=== PATIENT | male | born 1945 | race Caucasian/White ===

== ENCOUNTER 2021-02-01 21:41 | Inpatient (IN) | payer MEDICARE, SELFPAY ==
[2021-02-01 21:42] VITALS: BP 181/128; PULSE 76; RESP 18; TEMP 35.4; O2SAT 93; BMI 35.4
[2021-02-01 23:31] VITALS: BP 160/119; PULSE 104; RESP 20; O2SAT 92
--- NOTE | 2021-02-01 23:43 | EKG12_ITS ---
Test Reason : CONSTIPATION Blood Pressure : / mmHG Vent. Rate : 169 BPM Atrial Rate : 178 BPM P-R Int : 000 ms QRS Dur : 084 ms QT Int : 274 ms P-R-T Axes : 000 -05 103 degrees QTc Int : 459 ms Atrial fibrillation with rapid ventricular response Possible Anterior infarct , age undetermined Possible inferior infarct, age undetermined Abnormal ECG Confirmed by ANDRAE TAYLOR, CHERYL ([id number]), mapping editor GEORGINA MCINTOSH ([id number]) on 02/03/2021 11:24:46 AM Referred By: ALEXANDER Confirmed By:CHERYL ABEBE MD
--- NOTE | 2021-02-01 23:45 | ED.VIS.GEN ---
History of Present Illness Chief Complaint: Constipation Informant: Patient Onset: Weeks Context: Gradual Onset Narrative: Is a 75-year-old male presenting with constipation and increased swelling. Patient states he has had worsening constipation for the past 2 to 3 weeks. He states he has not had a good bowel movement since then. He notes he is passing some gas. He is not tried anything for his constipation at home. In addition, patient's been having a month or so of progressive worsening dyspnea on exertion, orthopnea and lower extremity edema. Patient states he gets intermittent palpitations especially when he exerts himself. Patient states has been having a hard time sleeping and having to lay on his right side. For now she has been sleeping in his truck reclined. Patient denies any nausea or vomiting. He does have history of inguinal hernia repair. He notes that he has not seen a doctor in 5 to 6 years. He denies any history of blood clots. He denies any associated chest pain. He has had swelling of his testicles as well. No other complaints at this time. Past Medical History - Allergies and Home Meds Allergies/Adverse Reactions: Allergies Sulfa (Sulfonamide Antibiotics) Allergy (Verified 02/01/21 21:44) PT UNSURE OF REACTION Primary Care Physician: NOT,DEFINED [NON-STAFF] - Past Medical History: None Surgical History: - - Inguinal hernia repair Smoking Status: Never smoker Review of Systems General: Denies: Chills, Fever, Sweats Eyes: Denies: Visual changes - bilaterally, Diplopia ENT: Denies: Rhinorrhea, Sore throat Cardiovascular: Reports: Palpitations, Heart racing. Denies: Chest pain Respiratory: Reports: Dyspnea, Dyspnea on exertion, Orthopnea. Denies: Cough Gastrointestinal: Reports: Constipation. Denies: Abdominal pain, Nausea, Vomiting, Diarrhea, Melena, Hematochezia Genitourinary: Reports: - - Testicular swelling. Denies: Dysuria, Hematuria, Frequency Musculoskeletal: Reports: Swelling. Denies: Back pain, Extremity Pain Skin: Denies: Rash, Wounds Neurological: Denies: Headache, Weakness, Numbness Physical Exam Vital Signs/Narrative: Vital Signs Temp Pulse Resp BP Pulse Ox 02/01/21 23:31 104 H 20 H 160/119 H 92 02/01/21 21:42 95.7 F L 76 18 181/128 H 93 Inital Vital Signs reviewed: Yes General: Well nourished, Well developed, No Acute Distress Head: Normocephalic, Atraumatic Eyes: Perrl, EOMI ENT: Moist mucous membranes, No rhinorrhea Neck: Supple, Nontender. Negative for: No JVD Cardiovascular: No murmurs, Irregular, Tachycardia Respiratory: No distress, Chest nontender, Diminished - Right base, - - No Crackles appreciated. Negative for: CTA bilaterally, Decreased Air Movement Abdomen: Soft, Nontender, Nondistended, Hyperactive bowel sounds, - - Pitting edema of the lower abdomen present. Negative for: Guarding, Rebound tenderness : - - Edema of the penis and testicles present Back: Nontender, Normal Inspection Extremities: No edema, Edema - Pain edema of bilateral lower extremities. Chronic venous stasis changes of the shins bilaterally Skin: Normal color, No rash Neurological: Alert, Oriented x3, Cranial nerves II-XII grossly intact, Normal Strength, Normal Sensation Psychological: Normal affect, Normal Mood Diagnostic/Tx/Re-eval Chest X-Ray - ED: 1 View, Read by ED Physician, Read by Radiologist, Right Effusion Clinical Impression(s) from Imaging Studies Chest X-Ray 02/02/21 00:00 IMPRESSION: Right midlung subsegmental atelectasis versus pneumonia. Small right pleural effusion. If there is high clinical suspicion of a right-sided pneumonia correlate with CT chest. Electronically Signed: Cecil Macias MD at 1:11 EDT , Service support , Abdomen/Pelvis CT 02/02/21 23:43 IMPRESSION: Bilateral pleural effusions right greater than left. Bilateral lower lobe and right upper lobe subsegmental atelectasis versus pneumonia. Mild right renal atrophy. Left renal parapelvic cysts which would find no further evaluation. Anasarca. Electronically Signed: Cecil Macias MD at 3:23 EDT , Service support , Laboratory Data 02/01/21 02/01/21 02/01/21 23:50 23:50 23:50 WBC 9.8 RBC 4.97 Hgb 15.1 Hct 47.0 MCV 94.6 H MCH 30.4 MCHC 32.1 RDW Std Deviation 47.6 H RDW Coeff of Patsy 13.8 Plt Count 146 L MPV 10.9 Immature Gran % (Auto) 0.300 Neut % (Auto) 80.4 H Lymph % (Auto) 6.6 L [place] % (Auto) 12.3 H Eos % (Auto) 0.2 Baso % (Auto) 0.2 Absolute Neuts (auto) 7.9 H Absolute Lymphs (auto) 0.65 L Nucleated RBC % 0 Sodium 138 Potassium 3.7 Chloride 103 Carbon Dioxide 28.0 Anion Gap 7 BUN 26 H Creatinine 1.70 H Estim Creat Clear Calc 36.97 Est GFR (MDRD) Af Amer 51 L Est GFR (MDRD) Non-Af 42 L BUN/Creatinine Ratio 15.3 Glucose 105 Calcium 9.5 Total Bilirubin 1.30 H AST 20 ALT 34 Alkaline Phosphatase 83 Troponin I 0.035 B-Natriuretic Peptide 285.1 H Total Protein 7.2 Albumin 3.3 Globulin 3.9 Albumin/Globulin Ratio 0.8 L Lipase 232 Urine Color Urine Clarity Urine pH Ur Specific [place] Urine Protein Urine Glucose (UA) Urine Ketones Urine Occult Blood Urine Nitrite Urine Bilirubin Urine Urobilinogen Ur Leukocyte Esterase Urine RBC Urine WBC Ur Squamous Epith Cells Urine Bacteria Urine Mucus 02/02/21 02:10 WBC RBC Hgb Hct MCV MCH MCHC RDW Std Deviation RDW Coeff of Patsy Plt Count MPV Immature Gran % (Auto) Neut % (Auto) Lymph % (Auto) [place] % (Auto) Eos % (Auto) Baso % (Auto) Absolute Neuts (auto) Absolute Lymphs (auto) Nucleated RBC % Sodium Potassium Chloride Carbon Dioxide Anion Gap BUN Creatinine Estim Creat Clear Calc Est GFR (MDRD) Af Amer Est GFR (MDRD) Non-Af BUN/Creatinine Ratio Glucose Calcium Total Bilirubin AST ALT Alkaline Phosphatase Troponin I B-Natriuretic Peptide Total Protein Albumin Globulin Albumin/Globulin Ratio Lipase Urine Color Yellow Urine Clarity Clear Urine pH 5.0 Ur Specific [place] 1.015 Urine Protein 30 H Urine Glucose (UA) Normal Urine Ketones 50 H Urine Occult Blood 10 H Urine Nitrite Negative Urine Bilirubin Negative Urine Urobilinogen 1 H Ur Leukocyte Esterase Negative Urine RBC 0-5 SEEN Urine WBC 0 SEEN Ur Squamous Epith Cells 0 SEEN Urine Bacteria 0 SEEN Urine Mucus 0 SEEN - Rhythm Strip Rhythm Strip: A-fib Rate: 146 Ectopy: None - EKG Initial EKG Interpretation: Atrial Fibrillation, - - Atrial fibrillation with RVR at a rate of 169 Left axis deviation Normal QRS and QTc Normal ST segments - Medical Decision Making Patient presents to the ED for complaint of constipation. He also notes has had increased edema over the past few weeks. Patient is not seen a doctor in at least 5 years. He denies any known medical history. While patient is in the ER he he goes into A. fib with RVR. Patient does not have any known history of atrial fibrillation or any type of cardiac arrhythmia. He states he has been getting this sensation on not for the past month. His physical exam is consistent with fluid overload and anasarca. Patient is complain of constipation and had distended abdomen. Therefore CT of abdomen pelvis is also obtained.He has been doing well CBC is largely unremarkable. BMP is remarkable for creatinine 1.7. We do not have a baseline to compare to. His BNP is elevated to 85. Urinalysis shows some ketones but no signs of infection. Chest x-ray atelectasis versus pneumonia and a right pleural effusion. CT of the abdomen pelvis shows anasarca as well as moderate right and small left pleural effusion. Questionable pneumonia versus infiltrate. No signs of constipation. Clinically I suspect patient is fluid overloaded and does not have pneumonia. Patient is started on Cardizem drip for atrial fibrillation. He does have improvement of rate but continues to have RVR. Patient is also given a 40 mg of IV Lasix as well as 5 mg of IV metoprolol. He will be admitted for further treatment and evaluation. Patient agreeable with this plan of care. ED Disposition - Plan for ED Patient: Disposition: [facility] Diagnosis: Afib, Heart failure, Anasarca, PATRICIA (acute kidney injury) Referrals: NOT,DEFINED [NON-STAFF] -
--- NOTE | 2021-02-01 23:48 | ED.RN ---
NO OLD EKGS ON FILE
[2021-02-01 23:49] VITALS: PULSE 160; RESP 22; O2SAT 97
[2021-02-01] MEDS: dilTIAZem 25 MG/5 ML Vial 15 MG IV BOLUS (23:49)
[2021-02-01 23:50] VITALS: PULSE 106
[2021-02-01 23:51] VITALS: BP 143/90; PULSE 106; RESP 22; TEMP 37.1; O2SAT 97
[2021-02-02] VITALS (34 sets, daily range): BP systolic 112–175; BP diastolic 87–159; PULSE 79–152; RESP 13–26; TEMP 36.3–36.8; O2SAT 93–99; BMI 33.1; BMI 33.2
--- NOTE | 2021-02-02 | RAD_ITS ---
STUDY: X-RAY CHEST REASON FOR EXAM: Male, 75 years old. Shortness of breath. TECHNIQUE: AP portable chest. COMPARISON: None. FINDINGS: Linear density right midlung. There may be a small right pleural effusion. Right lower lobe airspace opacity cannot be excluded. No pneumothorax. Normal size heart. Normal mediastinum and milagro. Normal visualized pulmonary arteries. Normal visualized aortic arch and descending thoracic aorta. Normal visualized thoracic spine. Normal visualized ribs, clavicles, and shoulders. There is no demonstrated abnormality of the visualized soft tissue structures of the upper abdomen. RAD/Chest 1 View (Portable) IMPRESSION: Right midlung subsegmental atelectasis versus pneumonia. Small right pleural effusion. If there is high clinical suspicion of a right-sided pneumonia correlate with CT chest. Electronically Signed: Cecil Macias MD at 1:11 EDT , Service support ,
[2021-02-02 00:02] LABS: Absolute Lymphocyte Count 0.65 X10^3/uL (0.83-4.51); Absolute Neutrophil Count 7.9 X10^3/uL (2.0-7.7); Basophil# 0.02 X10^3/uL; Basophil% 0.2 % (0-1); Eosinophil# 0.02 X10^3/uL; Eosinophils% 0.2 % (0-5); Hemoglobin 15.1 g/dL (13.0-16.5); Lymphocyte # 0.65 X10^3/ul (4.0); Lymphocyte % 6.6 % (19-41); Mean Corp Hgb Conc 32.1 g/dL (32-36); Mean Corpuscular Hgb 30.4 pg (27.0-32.0); Mean Corpuscular Volume 94.6 fL (80-94); Mean Platelet Vol. 10.9 fl (6.2-12.0); Monocyte% 12.3 % (0-10); NRBC Flagged by Analyzer 0 % (0-5); Neutrophil # 7.86 X10^3/uL (2.7-7.7); Neutrophil % 80.4 % (47-70); Platelet Count 146 K/mm3 (150-450); RBC Distribution Width CV 13.8 % (11.6-14.6); RBC Distribution Width SD 47.6 fl (35.1-43.9); Red Blood Count 4.97 M/mm3 (4.6-6.2); White Blood Count 9.8 K/mm3 (4.4-11.0)
[2021-02-02 00:22] LABS: ALB/GLOB Ratio 0.8 RATIO (0.9-2.4); AST(SGOT) 20 U/L (15-37); Alanine Aminotransfer ALT/SGPT 34 U/L (16-61); Albumin, Serum 3.3 g/dL (3.2-5.0); Alkaline Phosphatase 83 U/L (45-117); Anion Gap 7 (5-15); BNP,B-Type NATRIURETIC PEPTIDE 285.1 pg/mL (0-100); BUN 26 mg/dL (7-18); BUN/Creat Ratio 15.3 RATIO (10-20); Calcium,Total 9.5 mg/dL (8.5-10.1); Chloride 103 mmol/L (98-107); EST Glomerular Filtration Rate 42 mL/min (>60); Est Glom Filt Rate - Afr Amer 51 mL/min (>60); Estimated Creatinine Clearance 36.97 ml/min; Globulin 3.9 g/dL (2.2-4.2); Glucose 105 mg/dL (74-106); Lipase 232 U/L (73-393); Potassium 3.7 mmol/L (3.5-5.1); Protein, Total 7.2 g/dL (6.4-8.2); Sodium Level 138 mmol/L (136-145)
[2021-02-02 02:15] LABS: Bacteria 0 SEEN /hpf (None Seen); Mucous, Urine 0 SEEN /hpf (<or=2+); Squamous Epithelial Cells - UA 0 SEEN /hpf (0-5); White Blood Cells 0 SEEN /hpf (0-5)
[2021-02-02 02:16] LABS: Color, Urine Yellow (Yellow); Glucose, Dipstick Normal (Normal); Ketone-Dipstick 50 mg/dl (Negative); Leukocyte Esterase-Dipstick Negative /ul (Negative); Nitrite-Dipstick Negative (Negative); Occult Blood-Urine 10 /ul (Negative); Protein-Dipstick 30 mg/dl (Negative); Specific Gravity, Urine 1.015 (1.002-1.030); Urine Bilirubin Dipstick Negative (Negative); Urine Clarity Clear (Clear); Urine Urobilinogen 1 mg/dl (Normal)
[2021-02-02 02:23] LABS: Red Blood Cells-Urine 0-5 SEEN /hpf (0-5)
[2021-02-02] MEDS: Furosemide 40 MG/4 ML Vial IV ×3 (03:09→17:49)
--- NOTE | 2021-02-02 03:43 | PCM.HP.STD ---
Problem List (1) Afib Status: Acute (2) Heart failure Status: Acute (3) HTN (hypertension) Status: Chronic History of Present Illness Date of Admission: 02/02/21 Chief Complaint: abdominal heaviness The patient is a 75 year old M with a significant history of hypertension who presents emergency department with abdominal heaviness. Associated with his symptoms is palpitations; orthopnea; paroxysmal nocturnal dyspnea; shortness of breath; and fatigue. His symptoms started about mid November 2020 and it has progressively been worsening. Past Medical History Past Medical History (Chronic Problems): Chronic Problems (Last Updated 02/02/21 @ 04:[address] Jeovany Drew MD) HTN (hypertension) (Chronic) Medical History: Medical History (Last Reviewed 02/02/21 @ 04:[address] Jeovany Drew MD) HTN (hypertension) I10 Allergies Sulfa (Sulfonamide Antibiotics) Allergy (Verified 02/01/21 21:44) PT UNSURE OF REACTION Home Medications: Ambulatory Orders Medication Instructions Recorded NK 02/01/21 Surgical History: - - Inguinal hernia repair Smoking Status: Former smoker - *Family History Maternal History Items: Cancer Paternal History Items: Heart Disease, - - Leukemia Review of Systems Constitutional: Denies: Chills, Fever, Weight Change HEENT: Denies: Head Aches, Sinus Congestion, Sinus Drainage Cardiovascular: Reports: Edema, Orthopnea, Palpitations, Paroxysmal Noc. Dyspnea. Denies: Chest Pain Respiratory: Reports: Shortness of Breath. Denies: Cough, Shortness of breath at rest, Sputum production Gastrointestinal: Denies: Abdominal Pain, Nausea, Vomiting Genitourinary: Denies: Dysuria Musculoskeletal: Denies: Joint Pain, Joint Tenderness Skin: Denies: Rash, Wounds Neurological: Denies: Numbness, Tingling, Focal weakness Psychiatric: Denies: Anxiety, Depression, Homicidal Ideations, Suicidal Ideations Hematologic/ Lymphatic: Denies: Easy Bruising, Easy Bleeding VTE Information - Inpt Only VTE Present on Admission: No VTE Mechan Device Prophylaxis: None VTE Pharm Prophylaxis ordered?: No Reason prophylaxis not ordered:: Treatment Not Indicated - Therapeutic dose of Lovenox ordered for A. fib. Patient Problems: Active and Suspected Problems (Last Updated 02/02/21 @ 04:[address] Jeovany Drew MD) Afib (Acute) Heart failure (Acute) - Physical Exam Vitals/I&O's: Vital Signs Temp Pulse Resp BP Pulse Ox 97.7 F L 121 H 26 H 158/110 H 98 02/02/21 03:42 02/02/21 03:42 02/02/21 03:42 02/02/21 03:42 02/02/21 03:42 Oxygen Flow Rate (L/min) 2 Oxygen Delivery Method Nasal Cannula Weight: 109 kg Body Mass Index (BMI) 35.4 Intake and Output for Last 24 Hours 01/31/21 02/01/21 02/02/21 23:59 23:59 23:59 Intake Total 10.83 / Balance .83 / General: Alert, Oriented x3, Cooperative HEENT: Atraumatic, PERRLA, EOMI, Normocephalic Neck: Supple, No JVD, Negative Carotid Bruits Lungs: Clear to auscultation, Normal air movement, Diminished - R base Cardiovascular: Normal S1, Normal S2, No murmurs, Irregular Rate, Tachycardic Abdomen: Bowel Sounds Present, Soft, Non Tender, - - Scrotal and penile edema Extremities: Capillary Refill Less than 3 Seconds, Edema - 3+ Skin: No rashes, No breakdown Musculoskeletal: No Tenderness to Palpation of Joints or Extremities Neurological: Cranial nerves II-XII grossly intact Psych/Mental Status: Normal Affect, Appropriate Laboratory Results 02/01/21 23:50: WBC 9.8, RBC 4.97, Hgb 15.1, Hct 47.0, MCV 94.6 H, MCH 30.4, MCHC 32.1, RDW Std Deviation 47.6 H, RDW Coeff of Patsy 13.8, Plt Count 146 L, MPV 10.9, Immature Gran % (Auto) 0.300, Neut % (Auto) 80.4 H, Lymph % (Auto) 6.6 L, [place] % (Auto) 12.3 H, Eos % (Auto) 0.2, Baso % (Auto) 0.2, Absolute Neuts (auto) 7.9 H, Absolute Lymphs (auto) 0.65 L, Nucleated RBC % 0 02/01/21 23:50: Sodium 138, Potassium 3.7, Chloride 103, Carbon Dioxide 28.0, Anion Gap 7, BUN 26 H, Creatinine 1.70 H, Estim Creat Clear Calc 36.97, Est GFR (MDRD) Af Amer 51 L, Est GFR (MDRD) Non-Af 42 L, BUN/Creatinine Ratio 15.3, Glucose 105, Calcium 9.5, Total Bilirubin 1.30 H, AST 20, ALT 34, Alkaline Phosphatase 83, Troponin I 0.035, Total Protein 7.2, Albumin 3.3, Globulin 3.9, Albumin/Globulin Ratio 0.8 L, Lipase 232 02/01/21 23:50: B-Natriuretic Peptide 285.1 H 02/02/21 02:10: Urine Color Yellow, Urine Clarity Clear, Urine pH 5.0, Ur Specific [place] 1.015, Urine Protein 30 H, Urine Glucose (UA) Normal, Urine Ketones 50 H, Urine Occult Blood 10 H, Urine Nitrite Negative, Urine Bilirubin Negative, Urine Urobilinogen 1 H, Ur Leukocyte Esterase Negative, Urine RBC 0-5 SEEN, Urine WBC 0 SEEN, Ur Squamous Epith Cells 0 SEEN, Urine Bacteria 0 SEEN, Urine Mucus 0 SEEN Current Medications Diltiazem HCl 125 mg/ Dextrose 125 mls @ 5 mls/hr IV .Q25H ROBINSON; Protocol Last Titration: 02/02/21 01:42 Dose: 15 mg/hr, 15 mls/hr Documented by: Assessment/Plan All Active Problems (Last Updated 02/02/21 @ 04:[address] Jeovany Drew MD) Afib (Acute) Heart failure (Acute) The patient is a 75 year old M with a significant history of hypertension who presents emergency department with abdominal heaviness. Stated for symptoms is palpitations; orthopnea; paroxysmal nocturnal dyspnea; shortness of breath; and fatigue; found to have A. fib in RVR and also with chest x-ray and CT abdomen and pelvis findings of bilateral pleural effusion. Atrial fibrillation EKG tracing independently reviewed showed atrial fibrillation with a ventricular rate of 169 Place on PCU on telemetry Obtain echo [id number] 2 score 3 points if CHF history is not included. Lovenox 1 mg per kilogram subcutaneous every 12 hours Potassium level on presentation was 3.7. Given 40 mEq of potassium. Placed on potassium chloride 40 mEq daily. Will check magnesium. Will check TSH. Recheck the labs in the a.m. including a lipid panel. New onset heart failure Review of ED labs showed mildly elevated BNP at 285.1 Weight on admission to the floor; and then daily Strict I&O's Chest x-ray impression by radiology: Right midlung subsegmental atelectasis versus pneumonia. Small right pleural effusion. Actual chest x-ray image was independently interpreted. I agree with radiologist interpretation. Because of abdominal heaviness, abdomen and pelvis CT was obtained and emergency department. Radiologist impression: Bilateral pleural effusion right greater than left. Bilateral lower lobe and right upper lobe subsegmental atelectasis versus pneumonia. Clinically no sign of pneumonia at this time. No fever and white count is not elevated. Bands are not elevated. Also abdomen and pelvis CT showed anasarca. BNP 285.1 Received Lasix 40 g IV at emergency department. Lasix 40 mg IV twice daily ordered. Echo ordered to evaluate LVEF and wall motion. No previous echocardiogram on file. Actually no previous records on follow-up. Check of community records did not produce any results. Monitor electrolytes and renal function. Jonel wrap to bilateral lower extremities Fluid restriction of 1250 mls daily Cardiac diet PATRICIA Creatinine on presentation was 1.70. No previous records on file. No previous records in [facility]. Differential diagnosis include CKD. Possible cardiorenal syndrome. Lasix as above. Hypertension Started on Cardizem drip; continued. Trend blood pressures. Hyperbilirubinemia Bilirubin on presentation was 1.30. No clear etiology at this time. Trend CMP. DVT prophylaxis Subcutaneous Lovenox ordered. Inpatient E&M: 27932 Init Hosp L3
[2021-02-02] MEDS: Metoprolol Tartrate 5 MG/5 ML Vial IV (03:48)
--- NOTE | 2021-02-02 04:17 | ECHOCS_ITS ---
Reason For Study: A. fib/flutter Procedure This was a 2D Doppler, Color Flow transthoracic echocardiogram. The study was technically difficult. Patient scanned sitting up due to SOB. Contrast injection was performed. Exam performed portable in patient room. Left Ventricle Normal LV size. Mild concentric left ventricular hypertrophy. Mild global left ventricular systolic dysfunction. The estimated ejection fraction is 40 %. Unable to assess diastolic dysfunction. Right Ventricle Normal RV size. Normal systolic function. Atria The left atrium is moderately enlarged. The right atrium is mildly enlarged. No doppler evidence for ASD. Mitral Valve There is no mitral annular calcification. Normal mitral valve. Trivial mitral valve insufficiency. Tricuspid Valve Normal tricuspid valve. Mild tricuspid valve insufficiency. Right ventricular systolic pressure estimated to be 22 mmHg. Aortic Valve Trisinus/trileaflet aortic valve. Mild diffuse aortic valve thickening. Pulmonic Valve The pulmonic valve is not well visualized. Trivial pulmonic valve insufficiency. Great Vessels Normal sized aortic root. Pericardium/Pleural No pericardial effusion. Medication Diluted definity 4ml given slow IV push to enhance endocardial definition. MMode/2D Measurements & Calculations LVIDd: 3.9 cm IVSd: 1.4 cm Ao root diam: 3.8 cm LVIDs: 3.0 cm LVPWd: 1.3 cm RVDd: 3.6 cm FS: 22.6 % LAV(MOD-bp): 87.1 ml LVAd ap4: 29.2 cm2 SV(MOD-sp4): 23.6 ml LAV(MOD-bp) Indexed: 39.7 ml/m2 EDV(MOD-sp4): 78.4 ml LAV(MOD-sp2): 83.4 ml EDV(sp4-el): 81.9 ml LAV(MOD-sp4): 86.5 ml LVAs ap4: 21.7 cm2 ESV(MOD-sp4): 54.8 ml ESV(sp4-el): 54.2 ml EF(MOD-sp4): 30.1 % EF(sp4-el): 33.9 % SV(sp4-el): 27.7 ml LA A4 area: 26.9 cm2 LA dimension(2D): 4.6 cm RA A4 area: 23.5 cm2 Doppler Measurements & Calculations MV E max shikha: 81.8 cm/sec Ao V2 max: 101.9 cm/sec LV V1 max: 83.2 cm/sec Ao max P.2 mmHg LV V1 max P.8 mmHg PA V2 max: 73.6 cm/sec TR max shikha: 215.9 cm/sec TR max P.7 mmHg ECHO/Echo Complete W/ Contrast Interpretation Summary The study was technically difficult. Contrast injection was performed. Mild global left ventricular systolic dysfunction. The estimated ejection fraction is 40 %. Mild concentric left ventricular hypertrophy. The left atrium is moderately enlarged. The right atrium is mildly enlarged. Trivial mitral valve insufficiency. Mild tricuspid valve insufficiency. Mild diffuse aortic valve thickening. Trivial pulmonic valve insufficiency. Right ventricular systolic pressure estimated to be 22 mmHg. Unable to assess diastolic dysfunction. Comment: 2D echocardiographic images demonstrate a vague echodensity on the lef t atrial side of the interatrial septum of uncertain etiology with a differential diagnosis includin g echocardiographic reverberation/artifact, however, other etiologies such as mass lesion cannot be excluded. Consider further evaluation with additional cardiovascular studies such as HILARY or radiol ogic studies such as cardiac MRI as clinically indicated.= Ordering Physician: Jeovany Drew Performed By: Cleo Root RDCS
[2021-02-02] MEDS: Potassium Chloride Oral Tablet 20 MEQ 40 MEQ PO ×2 (04:36→09:36)
[2021-02-02] MEDS: Enoxaparin 120 MG/0.8 ML Syringe 110 MG SC ×2 (04:36→21:14)
[2021-02-02 05:01] LABS: Absolute Lymphocyte Count 0.74 X10^3/uL (0.83-4.51); Absolute Neutrophil Count 8.2 X10^3/uL (2.0-7.7); Basophil# 0.03 X10^3/uL; Basophil% 0.3 % (0-1); Eosinophil# 0.06 X10^3/uL; Eosinophils% 0.6 % (0-5); Hematocrit 46.4 % (40-54); Hemoglobin 14.6 g/dL (13.0-16.5); Lymphocyte # 0.74 X10^3/ul (4.0); Lymphocyte % 7.1 % (19-41); Mean Corp Hgb Conc 31.5 g/dL (32-36); Mean Corpuscular Hgb 29.6 pg (27.0-32.0); Mean Corpuscular Volume 93.9 fL (80-94); Monocyte# 1.28 X10^3/uL; Monocyte% 12.4 % (0-10); NRBC Flagged by Analyzer 0 % (0-5); Neutrophil # 8.19 X10^3/uL (2.7-7.7); Neutrophil % 79.1 % (47-70); Platelet Count 155 K/mm3 (150-450); RBC Distribution Width CV 13.8 % (11.6-14.6); RBC Distribution Width SD 47.6 fl (35.1-43.9); Red Blood Count 4.94 M/mm3 (4.6-6.2); White Blood Count 10.4 K/mm3 (4.4-11.0)
[2021-02-02 05:31] LABS: ALB/GLOB Ratio 0.8 RATIO (0.9-2.4); AST(SGOT) 21 U/L (15-37); Alanine Aminotransfer ALT/SGPT 35 U/L (16-61); Albumin, Serum 3.3 g/dL (3.2-5.0); Alkaline Phosphatase 87 U/L (45-117); Anion Gap 8 (5-15); BUN 25 mg/dL (7-18); BUN/Creat Ratio 16.2 RATIO (10-20); Calcium,Total 9.6 mg/dL (8.5-10.1); Chloride 102 mmol/L (98-107); Creatinine, Serum 1.54 mg/dL (0.70-1.30); EST Glomerular Filtration Rate 47 mL/min (>60); Est Glom Filt Rate - Afr Amer 57 mL/min (>60); Estimated Creatinine Clearance 42.14 ml/min; Globulin 3.9 g/dL (2.2-4.2); Glucose 113 mg/dL (74-106); Magnesium 1.9 mg/dL (1.6-2.6); Potassium 3.7 mmol/L (3.5-5.1); Protein, Total 7.2 g/dL (6.4-8.2); Sodium Level 138 mmol/L (136-145); Thyroid Stim Hormone (TSH) 2.47 uIU/mL (0.358-3.74)
[2021-02-02] MEDS: 0.9% Saline Lock 10 ML Syringe IV (09:38)
--- NOTE | 2021-02-02 11:10 | CASEMGMT ---
[facility] BILL Face to Face with patient for initial transition planning/care coordination assessment. RN FLY introduced self and role at [facility]. Patient lying in bed, alert and oriented. Patient willing to participate in assessment and is able to answer all questions appropriately. Care providers, pharmacy, and demographics verified. Patient wishes to discharge home, denies need for home health at this time. Patient states he has no further needs or concerns at this time. CM to follow for discharge planning needs that may arise. PCP: No PCP, FLY to provide patient with PCP list Specialists: none Preferred Pharmacy: [facility] Insurance: [facility] Prescription Benefit: none Living Will/HPOA: none LNOK: brother Living Arrangements: Patient lives alone in a 1 story home. Patient states he is independent and able to ambulate stairs. Transportation: self/friend DME/HHC: Patient denies DME or previous HHC. Disposition Plan: Patient to discharge home with follow-up plans in place. Casandra HERNANDEZ, RN, CM
[2021-02-02] MEDS: Metoprolol Tartrate 25 MG Tablet PO ×2 (16:15→21:14)
--- NOTE | 2021-02-02 21:50 | PCM.CONS.C ---
Problem List (1) Afib Status: Acute (2) CHF (congestive heart failure) Status: Acute Qualifiers: Heart failure type: systolic Heart failure chronicity: acute Qualified Code(s): I50.21 - Acute systolic (congestive) heart failure (3) Cardiomyopathy Status: Acute (4) Left atrial mass Status: Acute (5) HTN (hypertension) Status: Chronic (6) Renal insufficiency Status: Acute Reason for Consult Date of Consultation: 02/02/21 History of Present Illness: The patient is a 75 year [id number] white male with a past medical history of hypertension who is referred for evaluation of atrial fibrillation with rapid ventricular response, congestive heart failure, echocardiographic findings compatible with an underlying cardiomyopathy, echocardiographic findings compatible with a possible left atrial mass, superimposed upon hypertension, and renal insufficiency. The patient states that he had been in his usual state of health in the fall 2019 not noticing any significant issues or concerns. However since the beginning of 2020, and especially over the last approximately 1 month, he states that he has progressively gone downhill . He has noted episodes of palpitations and has noted progressive shortness of breath/dyspnea, the development of symptoms compatible with orthopnea, and progressive lower extremity peripheral pitting edema which has progressed up to his thighs. He states that his breathing has gotten worse where he cannot lie down comfortably. He has not necessarily complained of any near-syncope or syncope. Based upon his ongoing symptoms he presented to the emergency department for further evaluation and care. He was subsequently noted to have findings concerning for atrial fibrillation with rapid ventricular response. He was brought into the hospital for additional evaluation and care. Since being in the PCU he has undergone laboratory studies. He is noted to have elevation of his creatinine level. His cardiac rhythm has remained atrial fibrillation. He did undergo evaluation with a transthoracic echocardiogram. The results are as noted below. He also had a chest x-ray performed with the impression as noted below. He has been placed on medical therapy. This has included IV diltiazem for assistance with his ventricular rate control. He was also placed on IV diuretic therapy. He has had increased urinary output. [] Past Medical History Allergies/Adverse Reactions: Allergies Sulfa (Sulfonamide Antibiotics) Allergy (Verified 02/01/21 21:44) PT UNSURE OF REACTION Home Medications: Ambulatory Orders Medication Instructions Recorded NK 02/01/21 Past Medical History (Chronic Problems): Chronic Problems (Last Reviewed 02/02/21 @ 04:[address] Jeovany Drew MD) HTN (hypertension) (Chronic) Surgical History: - - Inguinal hernia repair - *Family History Maternal History Items: Cancer Paternal History Items: Heart Disease, - - Leukemia Lives: Alone Smoking Status: Former smoker Alcohol: None Drugs: None Review of Systems - Review of Systems General: Reports: Decreased Appetite. Denies: Fever, Fatigue, Night Sweats Cardiovascular: Reports: Shortness of Breath, Shortness of Breath at Rest, Shortness of Breath with Exertion, Orthopnea, Peripheral Edema, Palpitations. Denies: Chest Discomfort, PND, Lightheadedness, Dizziness, Near Syncope, Syncope Respiratory: Reports: Shortness of Breath. Denies: Cough, Sputum Production, Hemoptysis Genitourinary: Denies: Dysuria, Hematuria Skin: Denies: Rash Subjectve: This is a 75-year-old white male who appears to be resting reasonably comfortably in a semirecumbent position. Objective: Vital Signs Temp Pulse Resp BP Pulse Ox 98.1 F 84 22 H 127/109 H 94 02/02/21 20:00 02/02/21 21:14 02/02/21 21:00 02/02/21 21:00 02/02/21 21:00 Oxygen Flow Rate (L/min) 3 Oxygen Delivery Method Nasal Cannula Weight: 232 lb 5.875 oz Body Mass Index (BMI) 33.1 Intake and Output for Last 24 Hours 01/31/21 02/01/21 02/02/21 23:59 23:59 23:59 Intake Total 775.50 / 775.50 Output Total 2049 Balance -1274.50 / -1274.50 General: Awake, Alert, Oriented x 3, Cooperative, No Acute Distress, Obese HEENT: Atraumatic, Normocephalic, PERRL, EOMI, Sclera Non Icteric Neck: Supple, Good ROM Lungs: Diminished Que Bases Cardiovascular: Irregular Rhythm, Normal S1, Normal S2 Vascular: Decreased R Dorsalis Pedal Pulse, Decreased L Dorsalis Pedal Pulse, Decreased R Posterior Tibial Pulse, Decreased L Posterior Tibial Pulse Abdomen: Bowel Sounds Present, Soft, Obese Extremities: Severe RLE Edema, Severe LLE Edema Neurological: No Focal Motor or Sensory Deficit Psych/Mental Status: Depressed 02/01/21 23:50: WBC 9.8, RBC 4.97, Hgb 15.1, Hct 47.0, MCV 94.6 H, MCH 30.4, MCHC 32.1, Plt Count 146 L, MPV 10.9, Immature Gran % (Auto) 0.300, Neut % (Auto) 80.4 H, Lymph % (Auto) 6.6 L, Christian % (Auto) 12.3 H, Eos % (Auto) 0.2, Baso % (Auto) 0.2, Absolute Neuts (auto) 7.9 H, Nucleated RBC % 0 02/01/21 23:50: Sodium 138, Potassium 3.7, Chloride 103, Carbon Dioxide 28.0, Anion Gap 7, BUN 26 H, Creatinine 1.70 H, Est GFR (MDRD) Af Amer 51 L, Est GFR (MDRD) Non-Af 42 L, BUN/Creatinine Ratio 15.3, Glucose 105, Calcium 9.5, Total Bilirubin 1.30 H, Troponin I 0.035 02/01/21 23:50: B-Natriuretic Peptide 285.1 H 02/02/21 02:10: Urine Color Yellow, Urine Clarity Clear, Urine pH 5.0, Ur Specific [place] 1.015, Urine Protein 30 H, Urine Glucose (UA) Normal, Urine Ketones 50 H, Urine Occult Blood 10 H, Urine Nitrite Negative, Urine Bilirubin Negative, Urine Urobilinogen 1 H, Ur Leukocyte Esterase Negative, Urine RBC 0-5 SEEN, Urine WBC 0 SEEN 02/02/21 04:34: Sodium 138, Potassium 3.7, Chloride 102, Carbon Dioxide 28.0, Anion Gap 8, BUN 25 H, Creatinine 1.54 H, Est GFR (MDRD) Af Amer 57 L, Est GFR (MDRD) Non-Af 47 L, BUN/Creatinine Ratio 16.2, Glucose 113 H, Calcium 9.6, Magnesium 1.9, Total Bilirubin 1.40 H 02/02/21 04:34: WBC 10.4, RBC 4.94, Hgb 14.6, Hct 46.4, MCV 93.9, MCH 29.6, MCHC 31.5 L, Plt Count 155, MPV 11.0, Immature Gran % (Auto) 0.500, Neut % (Auto) 79.1 H, Lymph % (Auto) 7.1 L, Christian % (Auto) 12.4 H, Eos % (Auto) 0.6, Baso % (Auto) 0.3, Absolute Neuts (auto) 8.2 H, Nucleated RBC % 0 Rhythm: atrial fibrillation EKG: atrial fibrillation with RVR ECHO: Interpretation Summary The study was technically difficult. Contrast injection was performed. Mild global left ventricular systolic dysfunction. The estimated ejection fraction is 40 %. Mild concentric left ventricular hypertrophy. The left atrium is moderately enlarged. The right atrium is mildly enlarged. Trivial mitral valve insufficiency. Mild tricuspid valve insufficiency. Mild diffuse aortic valve thickening. Trivial pulmonic valve insufficiency. Right ventricular systolic pressure estimated to be 22 mmHg. Unable to assess diastolic dysfunction. Comment: 2D echocardiographic images demonstrate a vague echodensity on the left atrial side of the interatrial septum of uncertain etiology with a differential diagnosis including echocardiographic reverberation/artifact, however, other etiologies such as mass lesion cannot be excluded. Consider further evaluation with additional cardiovascular studies such as HILARY or radiologic studies such as cardiac MRI as clinically indicated.= CXR: IMPRESSION: Right midlung subsegmental atelectasis versus pneumonia. Small right pleural effusion. If there is high clinical suspicion of a right-sided pneumonia correlate with CT chest. Electronically Signed: Cecil Macias MD at 1:11 EDT Assessment/Plan 1. Atrial fibrillation The patient does have atrial fibrillation. It is unclear as to the etiology although it may be related to his history of hypertension. However other etiologies have not necessarily been excluded at this time. The duration of his atrial fibrillation is unknown as well. At the present time he will need to continue rate control with agents as deemed appropriate. He has been placed on anticoagulant therapy. Over time as his clinical course progresses perhaps he can be considered at some point time in the future for a possible attempt at regaining sinus rhythm with synchronized biphasic DC cardioversion. 2. CHF: acute: systolic The patient does appear to have findings compatible with congestive heart failure. Based upon his echocardiographic studies appears to be systolic mediated. It is unclear as to whether or not the etiology is related to an atrial fibrillation with rapid ventricular response such as a tachycardic induced cardiomyopathy leading to his CHF versus other etiologies. At the present time he will need continued medical management. He has been placed on medications with [id number]. Depending upon his clinical course and findings he may need alteration of his metoprolol to another beta-dom such as carvedilol. He is also receiving IV diuretics. He can also be considered for afterload reducing agents with SPENCER inhibitors or ARB use or agent such as Entresto as long as his renal function and metabolic status allows. 3. Cardiomyopathy He does have a finding compatible with a cardiomyopathy. Again the etiology is unclear. This may be related to a tachycardic induced cardiomyopathy. However other etiologies have not necessarily been excluded. The present time he will need to continue ongoing evaluation and care of his atrial dysrhythmia to assist with any concerns of a tachycardic induced cardiomyopathy. He will need to continue evaluation care of his CHF. 4. Left atrial mass The patient's echocardiogram does raise concern of an echodensity in the left atrium. As noted per the report is unclear whether this is echocardiographic reverberation/artifact versus a true mass such as a potential atrial myxoma. Ideally the patient would undergo further evaluation such as a transesophageal echocardiogram or cardiac MRI to further define this area. However at the present time the patient cannot rest in a supine position comfortably secondary to his CHF related symptoms with his shortness of breath, etc., to undergo such diagnostic studies. Thus the patient will need to have continued evaluation care of his congestive heart failure to hopefully improve his respiratory status where he could be able to undergo such procedures comfortably and safely. 5. HTN The patient does have ongoing hypertension. He will need continued evaluation and care with medical adjustment taking into consideration his other comorbidities to hopefully bring his blood pressure under better control. 6. Renal insufficiency. The patient does have underlying renal insufficiency. It is unclear how long he has had elevation of his creatinine level as to whether this is a chronic issue versus more acute issue related to his underlying ongoing cardiovascular related issues. Comment: The above case was discussed with the patient and Dr. Pinon. This note was generated using a voice recognition system and there may be incorrect words, spelling or punctuation that were not noted when reviewing the office note prior to saving. Procedure Criteria Procedure Type: Elective COVID Risk Discussion: The surgeon/proceduralist and patient have discussed in detail the risk of exposure to and/or potential harm posed by the COVID-19 virus with having a surgery/procedure at this time versus the risk of delaying the surgery/procedure. It is not possible to know either the risk of delaying the surgery or procedure or chance of getting an infection with perfect accuracy, but a joint decision was made between the patient and the surgeon/proceduralist to proceed at this time with the scheduled surgery/procedure as indicated on the consent form.
--- NOTE | 2021-02-02 22:18 | NURSING ---
At 2145 pulled pt up in bed, O2 sats 89-91 on 3L, increased O2 to 4.5L. LS Clear/diminished throughout, no distress noted. Will continue to monitor. Jack, RN
--- NOTE | 2021-02-02 23:43 | CT_ITS ---
STUDY: CT ABDOMEN AND PELVIS WITH CONTRAST REASON FOR EXAM: Male, 75 years old. constipation. RADIATION DOSAGE (If Supplied By Facility): CTDIvol = ( 18.72 ) mGy, DLP = ( 1414.63 ) mGycm TECHNIQUE: Transaxial images were obtained from the dome of the diaphragm to the symphysis pubis without oral contrast. IV 100mL Isovue-300 was administered. Sagittal and coronal images were reconstructed. Individualized dose optimization techniques were used for this CT. COMPARISON: None. FINDINGS: Bilateral pleural effusions moderate on the right and small left. Bilateral lower lobe subsegmental atelectasis right greater than left. Right upper lobe subsegmental atelectasis. Heart is not enlarged. Coronary artery calcifications. Normal liver. Normal gallbladder and extrahepatic biliary system. Normal spleen. Normal pancreas. Normal bilateral adrenal glands. Normal right kidney. Left renal parapelvic cysts. Mildly atrophic left kidney. Stomach is not well distended limiting evaluation. Normal small intestine. Normal colon. Appearance of the colon does not suggest constipation. The appendix is visualized and appears normal. Normal abdominal aorta. Normal inferior vena cava. Normal retroperitoneum. No intra-abdominal free air. Normal urinary bladder. Borderline prostate gland enlargement. Normal abdominal wall. L5-S1 disc space narrowing with vacuum disc. Anasarca. CT/Abdomen/Pelvis W IV Cont ONLY IMPRESSION: Bilateral pleural effusions right greater than left. Bilateral lower lobe and right upper lobe subsegmental atelectasis versus pneumonia. Mild right renal atrophy. Left renal parapelvic cysts which would find no further evaluation. Anasarca. Electronically Signed: Cecil Macias MD at 3:23 EDT , Service support ,
[2021-02-03] VITALS (37 sets, daily range): BP systolic 81–135; BP diastolic 61–100; PULSE 69–115; RESP 10–25; TEMP 36.5–36.9; O2SAT 88–98
[2021-02-03] MEDS: Nitroglycerin Oint 1 INCH PACKET TD ×2 (06:20→21:04)
[2021-02-03] MEDS: Aspirin 81 MG TAB.CHEW PO (08:22)
[2021-02-03] MEDS: Potassium Chloride Oral Tablet 20 MEQ 40 MEQ PO (08:22)
[2021-02-03 08:43] LABS: Magnesium 1.9 mg/dL (1.6-2.6)
--- NOTE | 2021-02-03 08:46 | PCM.PN.CARD ---
Subjectve: The patient states that his breathing has improved but is still not to the point where he can lie supine comfortably and breathe comfortably. He still continues with his marked lower extremity peripheral pitting edema. Objective: Vital Signs Temp Pulse Resp BP Pulse Ox 98.1 F 101 H 16 129/98 H 93 02/03/21 06:00 02/03/21 08:29 02/03/21 08:29 02/03/21 08:29 02/03/21 08:29 Oxygen Flow Rate (L/min) 3 Oxygen Delivery Method Nasal Cannula Weight: 232 lb 2.348 oz Body Mass Index (BMI) 33.1 Intake and Output for Last 24 Hours 02/01/21 02/02/21 02/03/21 23:59 23:59 23:59 Intake Total 925.50 / 940.50 143.17 / 143.17 Output Total 2150 / 2150 200 / 200 Balance -1224.50 / -1209.50 -56.83 / -56.83 General: Awake, Alert, Oriented x 3, Cooperative, No Acute Distress, Obese HEENT: Atraumatic, Normocephalic, PERRL, EOMI, Sclera Non Icteric Neck: Supple, Good ROM Lungs: Diminished Que Bases Cardiovascular: Irregular Rhythm, Normal S1, Normal S2 Abdomen: Bowel Sounds Present, Soft Extremities: Severe RLE Edema, Severe LLE Edema Neurological: No Focal Motor or Sensory Deficit Psych/Mental Status: Appropriate 02/03/21 08:20: Magnesium 1.9 Rhythm: Atrial fibrillation Medical Necessity - Tobacco Use Smoking Status: Former smoker Assessment/Plan 1. Atrial fibrillation The patient does have atrial fibrillation. It is unclear as to the etiology although it may be related to his history of hypertension. However other etiologies have not necessarily been excluded at this time. The duration of his atrial fibrillation is unknown as well. At the present time he will need to continue rate control with agents as deemed appropriate. He has been placed on anticoagulant therapy. Over time as his clinical course progresses perhaps he can be considered at some point time in the future for a possible attempt at regaining sinus rhythm with synchronized biphasic DC cardioversion. 2. CHF: acute: systolic The patient does appear to have findings compatible with congestive heart failure. Based upon his echocardiographic studies appears to be systolic mediated. It is unclear as to whether or not the etiology is related to an atrial fibrillation with rapid ventricular response such as a tachycardic induced cardiomyopathy leading to his CHF versus other etiologies. At the present time he will need continued medical management. He has been placed on medications with [id number]. He is also receiving IV diuretics. He is being initiated on SPENCER inhibitor therapy. 3. Cardiomyopathy He does have a finding compatible with a cardiomyopathy. Again the etiology is unclear. This may be related to a tachycardic induced cardiomyopathy. However other etiologies have not necessarily been excluded. The present time he will need to continue ongoing evaluation and care of his atrial dysrhythmia to assist with any concerns of a tachycardic induced cardiomyopathy. He will need to continue evaluation care of his CHF. 4. Left atrial mass The patient's echocardiogram does raise concern of an echodensity in the left atrium. As noted per the report is unclear whether this is echocardiographic reverberation/artifact versus a true mass such as a potential atrial myxoma. Ideally the patient would undergo further evaluation such as a transesophageal echocardiogram or cardiac MRI to further define this area. However at the present time the patient cannot rest in a supine position comfortably secondary to his CHF related symptoms with his shortness of breath, etc., to undergo such diagnostic studies. Thus the patient will need to have continued evaluation care of his congestive heart failure to hopefully improve his respiratory status where he could be able to undergo such procedures comfortably and safely. 5. HTN The patient does have ongoing hypertension. He will need continued evaluation and care with medical adjustment taking into consideration his other comorbidities to hopefully bring his blood pressure under better control. 6. Renal insufficiency. The patient does have underlying renal insufficiency. It is unclear how long he has had elevation of his creatinine level as to whether this is a chronic issue versus more acute issue related to his underlying ongoing cardiovascular related issues. This note was generated using a voice recognition system and there may be incorrect words, spelling or punctuation that were not noted when reviewing the office note prior to saving.
[2021-02-03 08:47] LABS: ALB/GLOB Ratio 0.8 RATIO (0.9-2.4); AST(SGOT) 16 U/L (15-37); Alanine Aminotransfer ALT/SGPT 31 U/L (16-61); Alkaline Phosphatase 72 U/L (45-117); Anion Gap 3 (5-15); BUN 30 mg/dL (7-18); BUN/Creat Ratio 16.5 RATIO (10-20); Calcium,Total 9.3 mg/dL (8.5-10.1); Chloride 105 mmol/L (98-107); Creatinine, Serum 1.82 mg/dL (0.70-1.30); EST Glomerular Filtration Rate 39 mL/min (>60); Est Glom Filt Rate - Afr Amer 47 mL/min (>60); Estimated Creatinine Clearance 35.65 ml/min; Globulin 3.6 g/dL (2.2-4.2); Glucose 111 mg/dL (74-106); Potassium 3.7 mmol/L (3.5-5.1); Protein, Total 6.6 g/dL (6.4-8.2); Sodium Level 139 mmol/L (136-145)
[2021-02-03] MEDS: Carvedilol 3.125 MG TABLET PO ×2 (09:31→19:06)
[2021-02-03] MEDS: Lisinopril 5 MG Tablet PO ×2 (09:31→21:04)
[2021-02-03] MEDS: Enoxaparin 120 MG/0.8 ML Syringe 110 MG SC ×2 (09:32→21:04)
[2021-02-03] MEDS: Furosemide 40 MG/4 ML Vial IV ×2 (09:32→18:23)
--- NOTE | 2021-02-03 14:12 | CASEMGMT ---
Therapy recommended that patient go somewhere for rehab. KARLA met with patient, introduced self and role at [facility]. KARLA told patient therapy is recommending he go somewhere for rehab. KARLA explained this means he would go to his facility of choice and stay for a couple of weeks until he is stronger. He was in agreement. He lives in [facility] so KARLA provided a list of SNF providers (in [place] and [facility]) including quality and resource use data and consistent with the patient?s preferred geographic region, medical needs, and insurance network. He said he wanted to talk to one of his buddies about some of the places before he decides. KARLA told him that is fine and KARLA will check back with him later. Melissa Bunch APPLIED STATISTICIAN NEISHA
--- NOTE | 2021-02-03 14:24 | PN_ITS ---
Patient Problems: Active and Suspected Problems (Last Reviewed 02/02/21 @ 04:[address] Jeovany Drew MD) Afib (Acute) Heart failure (Acute) CHF (congestive heart failure) (Acute) Cardiomyopathy (Acute) Left atrial mass (Acute) Renal insufficiency (Acute) Reason for Visit: Follow-up on A fib with RVR/Acute CHF Subjective: Patient was seen and examined. He feels improved. His SOB has improved. He remains in A. fib. Objective: Physical exam: General: Alert, Oriented x3, Cooperative, No apparent distress, Well developed, on 3L of oxygen HEENT: Atraumatic Oral: Moist Mucosa Neck: Supple Lungs: Clear to auscultation Cardiovascular: HS I+II, regular, no murmurs Abdomen: Bowel Sounds Present, Soft, Non Tender Extremities: No edema Skin: No rashes, No breakdown Neurological: Grossly intact Psych/Mental Status: Appropriate Vitals/I&O's: Vital Signs Temp Pulse Resp BP Pulse Ox 98.1 F 99 15 92/73 95 02/03/21 14:00 02/03/21 14:00 02/03/21 14:00 02/03/21 14:21 02/03/21 14:00 Oxygen Flow Rate (L/min) 3 Oxygen Delivery Method Nasal Cannula Weight: 105.3 kg Body Mass Index (BMI) 33.1 Intake and Output for Last 24 Hours 02/01/21 02/02/21 02/03/21 23:59 23:59 23:59 Intake Total 925.50 / 940.50 669.42 / 669.42 Output Total 2150 / 2150 400 / 400 Balance -1224.50 / -1209.50 269.42 / 269.42 Laboratory Results 02/03/21 08:20: Sodium 139, Potassium 3.7, Chloride 105, Carbon Dioxide 31.0, Anion Gap 3 L, BUN 30 H, Creatinine 1.82 H, Estim Creat Clear Calc 35.65, Est GFR (MDRD) Af Amer 47 L, Est GFR (MDRD) Non-Af 39 L, BUN/Creatinine Ratio 16.5, Glucose 111 H, Calcium 9.3, Total Bilirubin 0.90, AST 16, ALT 31, Alkaline Phosphatase 72, Total Protein 6.6, Albumin 3.0 L, Globulin 3.6, Albumin/Globulin Ratio 0.8 L 02/03/21 08:20: Magnesium 1.9 Current Medications Acetaminophen (Acetaminophen 325 Mg Tablet) 650 mg PO Q6H PRN PRN PRN Reason: Pain Score 1-10 /Temp>100.7 Aspirin (Aspirin 81 Mg Tab.Chew) 81 mg PO DAILY@0800 [facility] Last Admin: 02/03/21 08:22 Dose: 81 mg Documented by: Carvedilol (Carvedilol 3.125 Mg Tablet) 3.125 mg PO BID [facility] Last Admin: 02/03/21 09:31 Dose: 3.125 mg Documented by: Enoxaparin Sodium (Enoxaparin 120 Mg/0.8 Ml Syringe) 110 mg SC BID [facility] Last Admin: 02/03/21 09:32 Dose: 110 mg Documented by: Furosemide (Furosemide 40 Mg/4 Ml Vial) 40 mg IV BID@1000,1800 [facility] Last Admin: 02/03/21 09:32 Dose: 40 mg Documented by: Lisinopril (Lisinopril 5 Mg Tablet) 5 mg PO BID [facility] Last Admin: 02/03/21 09:31 Dose: 5 mg Documented by: Melatonin (Melatonin 3 Mg Tablet) 3 mg PO QHS PRN PRN PRN Reason: INSOMNIA Nitroglycerin (Nitroglycerin Oint 1 Inch Packet) 1 inch TD Q8 [facility] Last Admin: 02/03/21 14:21 Dose: Not Given Documented by: Ondansetron HCl (Ondansetron 4 Mg/2 Ml Vial) 4 mg IV Q8H PRN PRN PRN Reason: Nausea Potassium Chloride (Potassium Chloride Oral Tablet 20 Meq) 40 meq PO DAILYCM [facility] Last Admin: 02/03/21 08:22 Dose: 40 meq Documented by: Senna/Docusate Sodium (Senna/Docusate Sodium 1 Tablet) 2 tablet PO BID PRN PRN PRN Reason: Constipation Sodium Chloride (0.9% Saline Lock 10 Ml Syringe) 10 - 40 ml IV UD PRN PRN Reason: SALINE FLUSH Last Admin: 02/02/21 09:38 Dose: 10 ml Documented by: STROKE Vital Signs/Narrative: Vital Signs Temp Pulse Resp BP Pulse Ox 02/03/21 14:21 92/73 02/03/21 14:00 98.1 F 99 15 92/73 95 02/03/21 12:00 98.1 F 91 20 H 103/77 95 02/03/21 11:45 90 24 H 95/81 H 94 02/03/21 11:33 86 16 95/76 95 02/03/21 11:15 86 17 88/77 L 95 02/03/21 11:00 85 19 H 103/78 95 02/03/21 10:45 87 17 98/72 95 02/03/21 10:33 82 25 H 97/97 H 96 Medical Necessity - Tobacco Use Smoking Status: Former smoker Assessment/Plan All Active Problems (Last Reviewed 02/02/21 @ 04:[address] Jeovany Drew MD) Afib (Acute) Heart failure (Acute) CHF (congestive heart failure) (Acute) Cardiomyopathy (Acute) Left atrial mass (Acute) Renal insufficiency (Acute) 1. A. fib with RVR, newly diagnosed, on carvedilol, Lovenox Cardiology following 2. Acute systolic CHF, EF 40%, newly diagnosed On carvedilol, Lasix, Lisinopril. Continue with CHF protocol 3. Left atrial mass, seen on 2d-ECHO, patient will need HILARY later 4. Hypomagnesemia, Mg 1.9, replaced, recheck in am 5. PATRICIA, secondary to cardiorenal, Cr is about the same Cr is 1.82, will monitor whilst on Lasix Will consult nephrology to establish with him 6. Hypertension, relatively hypotensive, on carvedilol and Lisinopril 6. DVT PPx- On therapeutic Lovenox Inpatient E&M: 28626 [facility] L2
[2021-02-04] VITALS (12 sets, daily range): BP systolic 110–125; BP diastolic 67–102; PULSE 61–130; RESP 18–20; TEMP 36.4–37.1; O2SAT 94–98; BMI 33.3
[2021-02-04] MEDS: Nitroglycerin Oint 1 INCH PACKET TD (06:14)
--- NOTE | 2021-02-04 07:33 | PCM.PN.HOSP ---
Patient Problems: Active and Suspected Problems (Last Reviewed 02/02/21 @ 04:[address] Jeovany Drew MD) Afib (Acute) Heart failure (Acute) CHF (congestive heart failure) (Acute) Cardiomyopathy (Acute) Left atrial mass (Acute) Renal insufficiency (Acute) Reason for Visit: Follow-up on A fib with RVR/Acute CHF Subjective: Patient was seen and examined. Feels improved. Remains in A. fib, rate controlled. HILARY planned for a.m. Objective: Physical exam: General: Alert, Oriented x3, Cooperative, No apparent distress, Well developed, on 3L of oxygen HEENT: Atraumatic Oral: Moist Mucosa Neck: Supple Lungs: Clear to auscultation Cardiovascular: HS I+II, regular, no murmurs Abdomen: Bowel Sounds Present, Soft, Non Tender Extremities: No edema Skin: No rashes, No breakdown Neurological: Grossly intact Psych/Mental Status: Appropriate Vitals/I&O's: Vital Signs Temp Pulse Resp BP Pulse Ox 98.0 F 61 18 125/102 H 94 02/04/21 06:11 02/04/21 06:11 02/04/21 06:11 02/04/21 06:11 02/04/21 06:11 Oxygen Flow Rate (L/min) 3 Oxygen Delivery Method Nasal Cannula Weight: 105.4 kg Body Mass Index (BMI) 33.1 Intake and Output for Last 24 Hours 02/02/21 02/03/21 02/04/21 23:59 23:59 23:59 Intake Total 925.50 / 940.50 1373.42 / 1373.42 Output Total 2150 / 2150 825 / 825 200 / 200 Balance -1224.50 / -1209.50 548.42 / 548.42 -200 / -200 Laboratory Results 02/03/21 08:20: Sodium 139, Potassium 3.7, Chloride 105, Carbon Dioxide 31.0, Anion Gap 3 L, BUN 30 H, Creatinine 1.82 H, Estim Creat Clear Calc 35.65, Est GFR (MDRD) Af Amer 47 L, Est GFR (MDRD) Non-Af 39 L, BUN/Creatinine Ratio 16.5, Glucose 111 H, Calcium 9.3, Total Bilirubin 0.90, AST 16, ALT 31, Alkaline Phosphatase 72, Total Protein 6.6, Albumin 3.0 L, Globulin 3.6, Albumin/Globulin Ratio 0.8 L 02/03/21 08:20: Magnesium 1.9 Current Medications Acetaminophen (Acetaminophen 325 Mg Tablet) 650 mg PO Q6H PRN PRN PRN Reason: Pain Score 1-10 /Temp>100.7 Aspirin (Aspirin 81 Mg Tab.Chew) 81 mg PO DAILY@0800 [facility] Last Admin: 02/03/21 08:22 Dose: 81 mg Documented by: Carvedilol (Carvedilol 3.125 Mg Tablet) 3.125 mg PO BID [facility] Last Admin: 02/03/21 19:06 Dose: 3.125 mg Documented by: Enoxaparin Sodium (Enoxaparin 120 Mg/0.8 Ml Syringe) 110 mg SC BID [facility] Last Admin: 02/03/21 21:04 Dose: 110 mg Documented by: Furosemide (Furosemide 40 Mg/4 Ml Vial) 40 mg IV BID@1000,1800 [facility] Last Admin: 02/03/21 18:23 Dose: 40 mg Documented by: Lisinopril (Lisinopril 5 Mg Tablet) 5 mg PO BID [facility] Last Admin: 02/03/21 21:04 Dose: 5 mg Documented by: Melatonin (Melatonin 3 Mg Tablet) 3 mg PO QHS PRN PRN PRN Reason: INSOMNIA Nitroglycerin (Nitroglycerin Oint 1 Inch Packet) 1 inch TD Q8 [facility] Last Admin: 02/04/21 06:14 Dose: 1 inch Documented by: Ondansetron HCl (Ondansetron 4 Mg/2 Ml Vial) 4 mg IV Q8H PRN PRN PRN Reason: Nausea Potassium Chloride (Potassium Chloride Oral Tablet 20 Meq) 40 meq PO DAILYCM [facility] Last Admin: 02/03/21 08:22 Dose: 40 meq Documented by: Senna/Docusate Sodium (Senna/Docusate Sodium 1 Tablet) 2 tablet PO BID PRN PRN PRN Reason: Constipation Sodium Chloride (0.9% Saline Lock 10 Ml Syringe) 10 - 40 ml IV UD PRN PRN Reason: SALINE FLUSH Last Admin: 02/02/21 09:38 Dose: 10 ml Documented by: STROKE Vital Signs/Narrative: Vital Signs Temp Pulse Resp BP Pulse Ox 02/04/21 06:11 98.0 F 61 18 125/102 H 94 Medical Necessity - Tobacco Use Smoking Status: Former smoker Assessment/Plan All Active Problems (Last Reviewed 02/02/21 @ 04:[address] Jeovany Drew MD) Afib (Acute) Heart failure (Acute) CHF (congestive heart failure) (Acute) Cardiomyopathy (Acute) Left atrial mass (Acute) Renal insufficiency (Acute) 1. A. fib with RVR, newly diagnosed, rate controlled Continue on carvedilol, Lovenox Cardiology following 2. Acute systolic CHF, EF 40%, newly diagnosed, improving On carvedilol, Lasix, Lisinopril. Continue with CHF protocol 3. Left atrial mass, seen on 2d-ECHO, HILARY planned for tomorrow 4. Hypomagnesemia, Mg 1.9, replaced, recheck in am 5. PATRICIA, secondary to cardiorenal, Cr is about the same Cr is 1.7a, down from 1.82 Kidney ultrasound is pending, nephrology consulted, Repeat blood work in a.m. 6. Hypertension, BP improved Will continue to monitor on carvedilol and Lisinopril 7. DVT PPx- On therapeutic Lovenox Inpatient E&M: 93099 Subs Hosp L2
[2021-02-04 08:33] LABS: ALB/GLOB Ratio 0.8 RATIO (0.9-2.4); AST(SGOT) 23 U/L (15-37); Alanine Aminotransfer ALT/SGPT 38 U/L (16-61); Albumin, Serum 2.7 g/dL (3.2-5.0); Alkaline Phosphatase 71 U/L (45-117); Anion Gap 2 (5-15); BUN 32 mg/dL (7-18); BUN/Creat Ratio 18.6 RATIO (10-20); Calcium,Total 8.8 mg/dL (8.5-10.1); Chloride 105 mmol/L (98-107); Creatinine, Serum 1.72 mg/dL (0.70-1.30); EST Glomerular Filtration Rate 41 mL/min (>60); Est Glom Filt Rate - Afr Amer 50 mL/min (>60); Estimated Creatinine Clearance 37.73 ml/min; Globulin 3.6 g/dL (2.2-4.2); Glucose 91 mg/dL (74-106); Potassium 3.8 mmol/L (3.5-5.1); Protein, Total 6.3 g/dL (6.4-8.2); Sodium Level 139 mmol/L (136-145)
--- NOTE | 2021-02-04 09:32 | CASEMGMT ---
KARLA met with patient this am regarding his SNF choices. He would like KARLA to try [facility]. KARLA told him KARLA will work on this and let him know what KARLA finds out. KARLA called [facility] and spoke with Rehana in admissions. Her fax number is [phone]. KARLA faxed referral. Await response. Melissa DRIVER
--- NOTE | 2021-02-04 09:44 | PN.CARD_ITS ---
Subjectve: The patient has been up in the chair. He believes his breathing is somewhat improved as well as his lower extremity edema. Objective: Vital Signs Temp Pulse Resp BP Pulse Ox 98.0 F 117 H 18 125/102 H 97 02/04/21 06:11 02/04/21 06:59 02/04/21 06:11 02/04/21 06:11 02/04/21 07:04 Oxygen Flow Rate (L/min) 3 Oxygen Delivery Method Nasal Cannula Weight: 232 lb 5.875 oz Body Mass Index (BMI) 33.1 Intake and Output for Last 24 Hours 02/02/21 02/03/21 02/04/21 23:59 23:59 23:59 Intake Total 925.50 / 940.50 1373.42 / 1373.42 Output Total 2150 / 2150 825 / 825 200 / 200 Balance -1224.50 / -1209.50 548.42 / 548.42 -200 / -200 General: Awake, Alert, Oriented x 3, Cooperative, No Acute Distress, Obese HEENT: Atraumatic, Normocephalic, PERRL, EOMI, Sclera Non Icteric Neck: Supple, Good ROM Lungs: Diminished Que Bases Cardiovascular: Irregular Rhythm, Normal S1, Normal S2 Abdomen: Bowel Sounds Present, Soft Extremities: Moderate RLE Edema, Moderate LLE Edema Neurological: No Focal Motor or Sensory Deficit Psych/Mental Status: Appropriate 02/04/21 08:00: Sodium 139, Potassium 3.8, Chloride 105, Carbon Dioxide 32.0, Anion Gap 2 L, BUN 32 H, Creatinine 1.72 H, Est GFR (MDRD) Af Amer 50 L, Est GFR (MDRD) Non-Af 41 L, BUN/Creatinine Ratio 18.6, Glucose 91, Calcium 8.8, Total Bilirubin 0.70 Rhythm: Atrial fibrillation Medical Necessity - Tobacco Use Smoking Status: Former smoker Assessment/Plan 1. Atrial fibrillation The patient does have atrial fibrillation. It is unclear as to the etiology although it may be related to his history of hypertension. However other etiologies have not necessarily been excluded at this time. The duration of his atrial fibrillation is unknown as well. At the present time he will need to continue rate control with agents as deemed appropriate. He has been placed on anticoagulant therapy. Over time as his clinical course progresses perhaps he can be considered at some point time in the future for a possible attempt at regaining sinus rhythm with synchronized biphasic DC cardioversion. 2. CHF: acute: systolic The patient does appear to have findings compatible with congestive heart failure. Based upon his echocardiographic studies appears to be systolic mediated. It is unclear as to whether or not the etiology is related to an atrial fibrillation with rapid ventricular response such as a tachycardic induced ca rdiomyopathy leading to his CHF versus other etiologies. At the present time he will need continued medical management. He has been placed on medications with [id number]-[id number]. He is also receiving IV diuretics. He is being initiated on SPENCER inhibitor therapy. 3. Cardiomyopathy He does have a finding compatible with a cardiomyopathy. Again the etiology is unclear. This may be related to a tachycardic induced cardiomyopathy. However other etiologies have not necessarily been excluded. The present time he will need to continue ongoing evaluation and care of his atrial dysrhythmia to assist with any concerns of a tachycardic induced cardiomyopathy. He will need to continue evaluation care of his CHF. 4. Left atrial mass The patient's echocardiogram does raise concern of an echodensity in the left atrium. As noted per the report is unclear whether this is echocardiographic reverberation/artifact versus a true mass such as a potential atrial myxoma. The patient's overall status-respiratory status-appears to be improving. Thus, if the patient continues to improve, hopefully he can undergo a HILARY to further evaluate for any concerns of a left atrial mass. This will be tentatively scheduled for tomorrow a.m. barring a change in the patient's clinical course. 5. HTN The patient does have ongoing hypertension. He will need continued evaluation and care with medical adjustment taking into consideration his other comorbidities to hopefully bring his blood pressure under better control. 6. Renal insufficiency. The patient does have underlying renal insufficiency. It is unclear how long he has had elevation of his creatinine level as to whether this is a chronic issue versus more acute issue related to his underlying ongoing cardiovascular related issues. This note was generated using a voice recognition system and there may be incorrect words, spelling or punctuation that were not noted when reviewing the office note prior to saving.
[2021-02-04] MEDS: Potassium Chloride Oral Tablet 20 MEQ 40 MEQ PO (10:12)
[2021-02-04] MEDS: Isosorbide Mononitrate 30 MG Tablet PO (10:12)
[2021-02-04] MEDS: Furosemide 40 MG/4 ML Vial IV ×2 (10:12→18:08)
[2021-02-04] MEDS: Aspirin 81 MG TAB.CHEW PO (10:12)
[2021-02-04] MEDS: Carvedilol 3.125 MG TABLET PO ×2 (10:12→21:45)
[2021-02-04] MEDS: 0.9% Saline Lock 10 ML Syringe IV ×2 (10:13→18:08)
[2021-02-04] MEDS: Lisinopril 5 MG Tablet PO ×2 (10:13→21:45)
[2021-02-04] MEDS: Enoxaparin 120 MG/0.8 ML Syringe 110 MG SC ×2 (10:13→21:44)
--- NOTE | 2021-02-04 13:16 | CASEMGMT ---
KARLA called Rehana at [facility]. They are able to accept patient. KARLA let her know that if everything goes ok tomorrow with his HILARY she would like to discharge him. She said that would be fine. KARLA let patient know this information and he was pleased. He asked if his friend can take him and KARLA told him that SW will ask the facility and let him know. KARLA also told him he will have to be off of the O2 as he would not have any to take with him. KARLA called [facility] and left a message for Rehana. Melissa DRIVER
--- NOTE | 2021-02-04 13:27 | CON.PCM_ITS ---
Consultation - Renal 02/04/21 PCP/ Referring MD: Requesting physician: [] Primary care physician: No Primary Care Phys - History of Present Illness History of Present Illness: The patient is a 75 year old M was medical history of hypertension who presented to the emergency department with abdominal heaviness palpitations orthopnea dyspnea on exertion has paroxysmal nocturnal dyspnea shortness of breath at rest and fatigue. He also had some swelling in the legs. He states that his symptoms started in the beginning of this year. He states that he have not seen a doctor since 2011. He never seen a test tube maker or urologist. Denies dysuria hematuria taking NSAIDs nausea vomiting diarrhea. There is no history of herbal medications. Denies skin rashes. No labs available prior to this admission. He is not aware of any history of CKD in the past. - Allergies Allergies: Allergies Sulfa (Sulfonamide Antibiotics) Allergy (Verified 02/01/21 21:44) PT UNSURE OF REACTION - Current Medications Current Medications: Current Medications Acetaminophen (Acetaminophen 325 Mg Tablet) 650 mg PO Q6H PRN PRN PRN Reason: Pain Score 1-10 /Temp>100.7 Aspirin (Aspirin 81 Mg Tab.Chew) 81 mg PO DAILY@0800 [facility] Last Admin: 02/04/21 10:12 Dose: 81 mg Documented by: Carvedilol (Carvedilol 3.125 Mg Tablet) 3.125 mg PO BID [facility] Last Admin: 02/04/21 10:12 Dose: 3.125 mg Documented by: Enoxaparin Sodium (Enoxaparin 120 Mg/0.8 Ml Syringe) 110 mg SC BID [facility] Last Admin: 02/04/21 10:13 Dose: 110 mg Documented by: Furosemide (Furosemide 40 Mg/4 Ml Vial) 40 mg IV BID@1000,1800 [facility] Last Admin: 02/04/21 10:12 Dose: 40 mg Documented by: Sodium Chloride () 1,000 mls @ 15 mls/hr IV .Q48H [facility] Last Admin: 02/04/21 10:12 Dose: Not Given Documented by: Isosorbide Mononitrate (Isosorbide Mononitrate 30 Mg Tablet) 30 mg PO DAILY [facility] Last Admin: 02/04/21 10:12 Dose: 30 mg Documented by: Lisinopril (Lisinopril 5 Mg Tablet) 5 mg PO BID [facility] Last Admin: 02/04/21 10:13 Dose: 5 mg Documented by: Melatonin (Melatonin 3 Mg Tablet) 3 mg PO QHS PRN PRN PRN Reason: INSOMNIA Ondansetron HCl (Ondansetron 4 Mg/2 Ml Vial) 4 mg IV Q8H PRN PRN PRN Reason: Nausea Potassium Chloride (Potassium Chloride Oral Tablet 20 Meq) 40 meq PO DAILYCM [facility] Last Admin: 02/04/21 10:12 Dose: 40 meq Documented by: Senna/Docusate Sodium (Senna/Docusate Sodium 1 Tablet) 2 tablet PO BID PRN PRN PRN Reason: Constipation Sodium Chloride (0.9% Saline Lock 10 Ml Syringe) 10 - 40 ml IV UD PRN PRN Reason: SALINE FLUSH Last Admin: 02/04/21 10:13 Dose: 10 ml Documented by: - Past Medical History Past Medical History (Chronic Problems): Chronic Problems (Last Reviewed 02/02/21 @ 04:[address] Jeovany Drew MD) HTN (hypertension) (Chronic) - Past Surgical History Surgical History: - - Inguinal hernia repair - Social History Smoking Status: Former smoker Alcohol: None Drugs: None - Family History Maternal History Items: Cancer Paternal History Items: Heart Disease, - - Leukemia Patient Problems: Active and Suspected Problems (Last Reviewed 02/02/21 @ 04:[address] Jeovany Drew MD) Afib (Acute) Heart failure (Acute) CHF (congestive heart failure) (Acute) Cardiomyopathy (Acute) Left atrial mass (Acute) Renal insufficiency (Acute) - Physical Exam Vitals/I&O's: Vital Signs Temp Pulse Resp BP Pulse Ox 97.6 F L 116 H 18 111/72 96 02/04/21 10:10 02/04/21 10:10 02/04/21 10:10 02/04/21 10:10 02/04/21 10:10 Oxygen Flow Rate (L/min) 2 Oxygen Delivery Method Nasal Cannula Weight: 105.4 kg Body Mass Index (BMI) 33.1 Intake and Output for Last 24 Hours 02/02/21 02/03/21 02/04/21 23:59 23:59 23:59 Intake Total 925.50 / 940.50 1373.42 / 1373.42 Output Total 2150 / 2150 825 / 825 200 / 200 Balance -1224.50 / -1209.50 548.42 / 548.42 -200 / -200 General: Alert, Cooperative HEENT: Atraumatic, Normocephalic Neck: Supple Lungs: Clear to auscultation, Normal air movement Cardiovascular: Regular rate, Regular Rhythm, Normal S1, Normal S2 Abdomen: Bowel Sounds Present, Soft, Non Tender Extremities: Edema Microbiology Past 72 Hours 02/04/21 11:40 Mucosa - Nasopharyngeal SARS-CoV-2 Antigen (Rapid) - Final Laboratory Results 02/04/21 08:00: Sodium 139, Potassium 3.8, Chloride 105, Carbon Dioxide 32.0, Anion Gap 2 L, BUN 32 H, Creatinine 1.72 H, Estim Creat Clear Calc 37.73, Est GFR (MDRD) Af Amer 50 L, Est GFR (MDRD) Non-Af 41 L, BUN/Creatinine Ratio 18.6, Glucose 91, Calcium 8.8, Total Bilirubin 0.70, AST 23, ALT 38, Alkaline Phosphatase 71, Total Protein 6.3 L, Albumin 2.7 L, Globulin 3.6, Albumin/Globulin Ratio 0.8 L Current Medications Acetaminophen (Acetaminophen 325 Mg Tablet) 650 mg PO Q6H PRN PRN PRN Reason: Pain Score 1-10 /Temp>100.7 Aspirin (Aspirin 81 Mg Tab.Chew) 81 mg PO DAILY@0800 [facility] Last Admin: 02/04/21 10:12 Dose: 81 mg Documented by: Carvedilol (Carvedilol 3.125 Mg Tablet) 3.125 mg PO BID [facility] Last Admin: 02/04/21 10:12 Dose: 3.125 mg Documented by: Enoxaparin Sodium (Enoxaparin 120 Mg/0.8 Ml Syringe) 110 mg SC BID [facility] Last Admin: 02/04/21 10:13 Dose: 110 mg Documented by: Furosemide (Furosemide 40 Mg/4 Ml Vial) 40 mg IV BID@1000,1800 [facility] Last Admin: 02/04/21 10:12 Dose: 40 mg Documented by: Sodium Chloride () 1,000 mls @ 15 mls/hr IV .Q48H [facility] Last Admin: 02/04/21 10:12 Dose: Not Given Documented by: Isosorbide Mononitrate (Isosorbide Mononitrate 30 Mg Tablet) 30 mg PO DAILY [facility] Last Admin: 02/04/21 10:12 Dose: 30 mg Documented by: Lisinopril (Lisinopril 5 Mg Tablet) 5 mg PO BID [facility] Last Admin: 02/04/21 10:13 Dose: 5 mg Documented by: Melatonin (Melatonin 3 Mg Tablet) 3 mg PO QHS PRN PRN PRN Reason: INSOMNIA Ondansetron HCl (Ondansetron 4 Mg/2 Ml Vial) 4 mg IV Q8H PRN PRN PRN Reason: Nausea Potassium Chloride (Potassium Chloride Oral Tablet 20 Meq) 40 meq PO DAILYCM [facility] Last Admin: 02/04/21 10:12 Dose: 40 meq Documented by: Senna/Docusate Sodium (Senna/Docusate Sodium 1 Tablet) 2 tablet PO BID PRN PRN PRN Reason: Constipation Sodium Chloride (0.9% Saline Lock 10 Ml Syringe) 10 - 40 ml IV UD PRN PRN Reason: SALINE FLUSH Last Admin: 02/04/21 10:13 Dose: 10 ml Documented by: Assessment/Plan All Active Problems (Last Reviewed 02/02/21 @ 04:[address] Jeovany Drew MD) Afib (Acute) Heart failure (Acute) CHF (congestive heart failure) (Acute) Cardiomyopathy (Acute) Left atrial mass (Acute) Renal insufficiency (Acute) PATRICIA versus CKD 3 at baseline CHFrEF Hypertension A. fib Serum creatinine has been stable since admission okay to continue diuretics from renal standpoint. Considering his A. fib and CHF would leave management of his hypertension per cardiology. Avoid overdiuresis and nephrotoxins. Check a renal ultrasound Further work-up as indicated by clinical course The above assessment and plan was discussed at length with the patient voiced understanding and agrees to proceed with the plan as outlined above. Was given the opportunity to ask questions and stated that those were answered to his satisfaction. Thank you very much for allowing me to participate in the care of this patient. Please do not hesitate to call if you have any questions or concerns.
--- NOTE | 2021-02-04 13:36 | US_ITS ---
STUDY: RENAL ULTRASOUND - COMPLETE REASON FOR EXAM: Male, 75 years old. avni TECHNIQUE: Ultrasound evaluation of the kidneys was performed with real-time and static fox-scale imaging. COMPARISON: None. FINDINGS: RIGHT KIDNEY: Normal location of the right kidney, which is normal in size. The right kidney measures 9.9 cm x 4.7 cm x 4 cm. There is a normal cortex of the right kidney. The renal cortex measures 1.5 cm. 1.1 cm x 1.4 cm x 0.9 cm right renal cyst. There are no right renal calculi. There is no right hydronephrosis. DISTAL RIGHT URETER: There is non-visualization of the distal right ureter. There is no demonstrated right ureterovesical junction calculus. There is no demonstrated right ureteral jet. LEFT KIDNEY: Normal location of the left kidney, which is normal in size. The left kidney measures 10.7 cm x 5.4 cm x 5.1 cm. There is a normal cortex of the left kidney. The renal cortex measures 1.2 cm. There is no left renal mass or cyst. There are no left renal calculi. There is mild hydronephrosis of the left kidney. DISTAL LEFT URETER: There is non-visualization of the distal left ureter. There is no demonstrated left ureterovesical junction calculus. There is no demonstrated left ureteral jet. BLADDER: The distended urinary bladder has a volume of 125 ml. There is a normal wall thickness of the distended urinary bladder. There is no demonstrated mass within the urinary bladder. There are no demonstrated bladder calculi. US/Kidney and Bladder IMPRESSION: 1.1 cm x 1.4 cm x 0.9 cm right renal cyst. Mild degree of left hydronephrosis. Electronically Signed: Jacobo Ding MD at 9:08 EDT , Service support ,
[2021-02-05] VITALS (9 sets, daily range): BP systolic 124–146; BP diastolic 84–94; PULSE 90–121; RESP 18–20; TEMP 36.4–36.7; O2SAT 92–100; BMI 33.0
--- NOTE | 2021-02-05 08:00 | ECHOTEE_ITS ---
Reason For Study: ATRIAL FIB-FLUTTER Medication HILARY probe 6VT-D (SN [id number]) passed with minimal difficulty. No complications were noted. Versed 1 mg given slow IVP. Fentanyl 50 mcg given slow IVP. Cetacaine Topical [place]hattuck given X3 orally. Performed a rapid injection of agitated mix of 9 cc saline and 1cc air to assess for atrial septal defect. Left Ventricle Based upon the 2D echocardiographic images obtained there appears to be grossly normal left ventricular size and global left ventricular systolic dysfunction. The estimated ejection fraction is 30 %. Right Ventricle Normal RV size. Normal systolic function. Atria Positive color-flow Doppler study for a left to right interatrial shunt compatible with a small PFO. Late and faintly positive agitated saline contrast study for a right to left interatrial shunt potentially compatible with a small PFO. The left atrium is moderately enlarged. There is mild sponatenous contrast in the left atrium. No thrombus is detected in the left atrial appendage. The right atrium is moderately enlarged. There is no sponatenous contrast in the right atrium. No obvious right atrial/appendage thrombus identified. Mitral Valve There is no mitral annular calcification. Mild diffuse mitral valve thickening. Mild-Moderate (1-2+) mitral valve insufficiency. Tricuspid Valve Normal tricuspid valve. Mild tricuspid valve insufficiency. Aortic Valve Trisinus/trileaflet aortic valve. Mild diffuse aortic valve thickening. Pulmonic Valve The pulmonic valve is not well visualized. Vessels Mild atherosclerosis of the descending aorta. Pericardium No pericardial effusion. ECHO/Echo Transesophageal (HILARY) Interpretation Summary Based upon the 2D echocardiographic images obtained there appears to be grossly normal left ventricular size and global left ventricular systolic dysfunction. The estimated ejection fraction is 30 %. The left atrium is moderately enlarged. There is mild sponatenous contrast in the left atrium. No thrombus is detected in the left atrial appendage. The right atrium is moderately enlarged. Mild diffuse mitral valve thickening. Mild-Moderate (1-2+) mitral valve insufficiency. Mild tricuspid valve insufficiency. Mild diffuse aortic valve thickening. Positive color-flow Doppler study for a left to right interatrial shunt compati ble with a small PFO. Late and faintly positive agitated saline contrast study for a right to left in teratrial shunt potentially compatible with a small PFO. Mild atherosclerosis of the descending aorta. Ordering Physician: Rojas Schilling Performed By: Aide Carmichael RDCS
[2021-02-05] MEDS: Carvedilol 3.125 MG TABLET PO (08:08)
[2021-02-05] MEDS: Aspirin 81 MG TAB.CHEW PO (08:08)
[2021-02-05] MEDS: Potassium Chloride Oral Tablet 20 MEQ 40 MEQ PO (08:08)
[2021-02-05] MEDS: Lisinopril 5 MG Tablet PO (08:08)
[2021-02-05] MEDS: Enoxaparin 120 MG/0.8 ML Syringe 110 MG SC (08:08)
[2021-02-05] MEDS: Isosorbide Mononitrate 30 MG Tablet PO (08:09)
[2021-02-05] MEDS: 0.9% Normal Saline 1,000 ML 15 ML IV (08:20)
[2021-02-05 08:42] LABS: Anion Gap 2 (5-15); BUN 33 mg/dL (7-18); Calcium,Total 9.2 mg/dL (8.5-10.1); Chloride 103 mmol/L (98-107); Creatinine, Serum 1.83 mg/dL (0.70-1.30); EST Glomerular Filtration Rate 38 mL/min (>60); Est Glom Filt Rate - Afr Amer 47 mL/min (>60); Estimated Creatinine Clearance 35.46 ml/min; Glucose 101 mg/dL (74-106); Potassium 4.5 mmol/L (3.5-5.1); Sodium Level 139 mmol/L (136-145)
[2021-02-05] MEDS: Furosemide 40 MG/4 ML Vial IV (10:36)
[2021-02-05] MEDS: 0.9% Saline Lock 10 ML Syringe IV (10:37)
--- NOTE | 2021-02-05 10:40 | PN.CARD_ITS ---
Subjectve: The patient is status post HILARY. He is awake and alert. He has no acute complaints. Objective: Vital Signs Temp Pulse Resp BP Pulse Ox 98.1 F 121 H 20 H 126/92 H 96 02/05/21 08:05 02/05/21 08:05 02/05/21 08:05 02/05/21 08:05 02/05/21 08:05 Oxygen Flow Rate (L/min) 2 Oxygen Delivery Method Nasal Cannula Weight: 230 lb 2.601 oz Body Mass Index (BMI) 33.0 Intake and Output for Last 24 Hours 02/03/21 02/04/21 02/05/21 23:59 23:59 23:59 Intake Total 1373.42 / 1373.42 840 / 840 0 / 0 Output Total 825 / 825 525 / 525 400 / 400 Balance 548.42 / 548.42 315 / 315 -400 / -400 General: Awake, Alert, Oriented x 3, Cooperative, No Acute Distress HEENT: Atraumatic, Normocephalic, PERRL, EOMI, Sclera Non Icteric Neck: Supple, Good ROM, No JVD Lungs: Clear to auscultation Cardiovascular: Irregular Rhythm, Normal S1, Normal S2 Abdomen: Bowel Sounds Present, Soft Extremities: Moderate RLE Edema, Moderate LLE Edema Neurological: No Focal Motor or Sensory Deficit Psych/Mental Status: Appropriate 02/05/21 08:20: Sodium 139, Potassium 4.5, Chloride 103, Carbon Dioxide 34.0 H, Anion Gap 2 L, BUN 33 H, Creatinine 1.83 H, Est GFR (MDRD) Af Amer 47 L, Est GFR (MDRD) Non-Af 38 L, BUN/Creatinine Ratio 18.0, Glucose 101, Calcium 9.2 Rhythm: atrial fibrillation HILARY: Medical Necessity - Tobacco Use Smoking Status: Former smoker Assessment/Plan 1. Atrial fibrillation The patient does have atrial fibrillation. It is unclear as to the etiology although it may be related to his history of hypertension. However other etiologies have not necessarily been excluded at this time. The duration of his atrial fibrillation is unknown as well. At the present time he will need to continue rate control with agents as deemed appropriate. He has been placed on anticoagulant therapy. The patient is now s/p HILARY. It may be reasonable, as his HILARY did not show any obvious intracardiac mass lesion, to proceed with attempt at synchronized biphasic DC cardioversion in an attempt to regain sinus rhythm and help stabilize his cardiovascular status. 2. CHF: acute: systolic The patient does appear to have findings compatible with congestive heart failure. Based upon his echocardiographic studies appears to be systolic mediated. It is unclear as to whether or not the etiology is related to an atrial fibrillation with rapid ventricular response such as a tachycardic induced cardiomyopathy leading to his CHF versus other etiologies. At the present time he will need continued medical management. He has been placed on medications with [id number]. He is also receiving IV diuretics. He is being initiated on SPENCER inhibitor therapy. 3. Cardiomyopathy He does have a finding compatible with a cardiomyopathy. Again the etiology is unclear. This may be related to a tachycardic induced cardiomyopathy. However other etiologies have not necessarily been excluded. The present time he will need to continue ongoing evaluation and care of his atrial dysrhythmia to assist with any concerns of a tachycardic induced cardiomyopathy. He will need to continue evaluation care of his CHF. 4. Left atrial mass The patient has undergone HILARY. At the present time there was no obvious left atrial or intracardiac mass lesion identified. Thus the previous findings on transthoracic echocardiogram appear to been compatible with echocardiographic artifact/reverberation. 5. HTN The patient does have ongoing hypertension. He will need continued evaluation and care with medical adjustment taking into consideration his other comorbidities to hopefully bring his blood pressure under better control. 6. Renal insufficiency. The patient does have underlying renal insufficiency. It is unclear how long he has had elevation of his creatinine level as to whether this is a chronic issue versus more acute issue related to his underlying ongoing cardiovascular related issues. Comment: Overall, at the present time, the patient will continue to be monitored, he will continue medical management/adjustment as needed, he will be considered for post he DC cardioversion attempt to regain sinus rhythm to help stabilize his overall cardiovascular status. Over time he will need follow-up his left ventricular wall motion systolic function with noninvasive studies. However, may eventually need evaluation for any other contributing factors such as the possibility of CAD, noninvasively or invasively, hopefully once his overall cardiovascular status improves. This note was generated using a voice recognition system and there may be inc orrect words, spelling or punctuation that were not noted when reviewing the office note prior to saving.
--- NOTE | 2021-02-05 10:52 | EKG12_ITS ---
Test Reason : Blood Pressure : / mmHG Vent. Rate : 128 BPM Atrial Rate : 153 BPM P-R Int : 000 ms QRS Dur : 084 ms QT Int : 310 ms P-R-T Axes : 000 -13 045 degrees QTc Int : 452 ms Atrial fibrillation Poor R- wave progression Inferior IL, age undetermined, cannot be excluded Confirmed by ANDRAE TAYLOR, CHERYL ([id number]), marketing editor HENRRY RUSS ([id number]) on 02/08/2021 8:51:23 AM Referred By: PAM Confirmed By:CHERYL ABEBE MD
[2021-02-05] MEDS: Etomidate 20 MG/10 ML Vial IV (12:35)
--- NOTE | 2021-02-05 12:50 | CARDIOVERS_ITS ---
Cardioversion Cardioversion: Date: 02-05-2021 Procedure: Synchronized Biphasic DC Cardioversion Indications: Atrial fibrillation Consent: Per the Patient Anesthesia: per Dr. Wang of pulmonology and critical care medicine with etomidate 4 mg IV push total Procedure: Synchronized Biphasic DC Cardioversion: 200 J x 1: Result: Sinus rhythm Complications: no apparent complications This note was generated with [employer] software. It may contain incorrect words, spelling, and punctuation that were not noted in checking the note before signing.
--- NOTE | 2021-02-05 12:51 | EKG12_ITS ---
Test Reason : Blood Pressure : / mmHG Vent. Rate : 095 BPM Atrial Rate : 095 BPM P-R Int : 178 ms QRS Dur : 084 ms QT Int : 350 ms P-R-T Axes : 032 -13 053 degrees QTc Int : 439 ms Normal sinus rhythm Poor R- wave progression Confirmed by ANDRAE TAYLOR, CHERYL ([id number]), research editor HENRRY RUSS ([id number]) on 02/10/2021 1:19:38 PM Referred By: ANDRAE Confirmed By:CHERYL ABEBE MD
--- NOTE | 2021-02-05 13:14 | PCM.OP.PRO ---
Problem List (1) Afib Status: Acute (2) Heart failure Status: Acute (3) HTN (hypertension) Status: Chronic (4) CHF (congestive heart failure) Status: Acute Qualifiers: Heart failure type: systolic Heart failure chronicity: acute Qualified Code(s): I50.21 - Acute systolic (congestive) heart failure (5) Cardiomyopathy Status: Acute Procedure Report Date of Procedure: 02/05/21 - Conscious sedation CONSCIOUS SEDATION REPORT BRIEF HISTORY OF PRESENT ILLNESS: The patient is a 75-year-old male who presented to [facility] for an elective outpatient cardioversion due to underlying atrial fibrillation. The patient reports no PO intake since midnight. The patient does not have a history of obstructive sleep apnea. The patient reports a history of smoking and COPD. The patient denies any recent constitutional symptoms such as fevers, chills, nausea or vomiting. The patient denies previous anesthetic complications. Patient with a HILARY earlier in the day requiring 1 mg of Versed and 50 of fentanyl. EF on that procedure was 30%. PHYSICAL EXAMINATION: VITAL SIGNS: Reviewed and were acceptable. GENERAL: The patient is a male, in no apparent distress, speaking in full sentences. HEENT: Normocephalic, atraumatic. Mucous membranes are moist and pink. Good mouth opening noted. Trachea is midline. Poor dentition good neck mobility. MP II CHEST: S1, S2 irregularly irregular. No murmurs, rubs or gallops were noted. LUNGS: Clear to auscultation bilaterally without appreciable wheezes, rales or rhonchi. ABDOMEN: Soft, nontender, nondistended. Positive bowel sounds. EXTREMITIES: There is no clubbing, cyanosis or edema. ASA Class: II DESCRIPTION OF PROCEDURE: After confirmation of informed consent, the patient's anesthesia plan was reviewed in detail. Etomidate was chosen. Risks and benefits were reviewed and the patient agreed to proceed. At 12:35 PM, the patient was given 4 mg of etomidate. The patient achieved an appropriate level of sedation and received 1 attempt synchronized cardioversion, at [address] Schilling at the bedside. This was successful in achieving normal sinus rhythm. The patient was monitored until 12:50 PM, at which time the patient reached their baseline mental status and function. The patient tolerated the procedure well. COMPLICATIONS: None ESTIMATED BLOOD LOSS: None RECOMMENDATIONS: Okay to recover in usual fashion. [id number]: Other Procedure See Report - [id number]
--- NOTE | 2021-02-05 13:58 | TREXTCAR_ITS ---
- Diet 02/05/21 10:52 Diet: Cardiac diet Dietary Modifications:: Sodium Restricted Is pt able to select menu?: Yes - Routine Orders/Code Status O2 Liters per Minute: 2-3 L O2 Frequency: Continuous Keep PO Greater than or Equal to (%): 94 Routine Lab Work: CBC - within 3 days, BMP - within 3 days Code Status: Full Code - Wound(s) right lower leg Wound Type: Stasis Ulcer - Therapies Weight Bearing: Weight bearing as tolerated Physical Therapy: Eval and Treat Occupational Therapy: Eval and Treat - Allergies/Procedures Done in Hospital Allergies/Adverse Reactions: Allergies Sulfa (Sulfonamide Antibiotics) Allergy (Verified 02/01/21 21:44) PT UNSURE OF REACTION Procedures: 2-D Echocardiogram, Transesophageal Echo - Type of Care/Length of Stay Estimated LOS: Convalescent Care Less Than 30 days Type of Care Needed: Skilled Rehab Potential: Good Prognosis: Good - Additional Orders/Day of Discharge Day of Discharge: 02/05/21 - Dietary and Speech Recommendations Dietitian Recommendations/Changes: Will continue cardiac diet w/ sodium- rstriction and 1250 ml FR as ordered; consider 1500ml FR as able. - Follow Up Care Primary Care Physician: NOT,DEFINED [NON-STAFF] - Please Follow Up With: Rojas Schilling MD When: in 2 weeks
--- NOTE | 2021-02-05 14:08 | DS.PCM_ITS ---
Discharge Date and Diagnosis - Problem List Patient Problems: Active and Suspected Problems (Last Reviewed 02/02/21 @ 04:[address] Jeovany Drew MD) Afib (Acute) Heart failure (Acute) CHF (congestive heart failure) (Acute) Cardiomyopathy (Acute) Left atrial mass (Acute) Renal insufficiency (Acute) Date of Admission: 02/02/21 Date of Discharge: 02/05/21 - Primary Discharge Diagnosis Acute Problems: Active Problems (Last Reviewed 02/02/21 @ 04:[address] Jeovany Drew MD) 1. A. fib with RVR, newly diagnosed, 2. Acute systolic CHF, EF 40%, newly diagnosed 3. Probable Left atrial mass, ruled out with negative HILARY 4. Hypomagnesemia 5. PATRICIA, secondary to cardiorenal 6. Left mild hydronephrosis - Secondary Discharge Diagnosis Chronic Problems: Chronic Problems (Last Reviewed 02/02/21 @ 04:[address] Jeovany Drew MD) HTN (hypertension) (Chronic) Hospital Course and Treatment Imaging Results: 02/05/21 08:00 Echo Transesophageal (HILARY) [ECHO] Routine Clinical Impression(s) from Imaging Studies Chest X-Ray 02/02/21 00:00 IMPRESSION: Right midlung subsegmental atelectasis versus pneumonia. Small right pleural effusion. If there is high clinical suspicion of a right-sided pneumonia correlate with CT chest. Electronically Signed: Cecil Macias MD at 1:11 EDT , Service support , Echocardiogram 02/02/21 04:17 Interpretation Summary The study was technically difficult. Contrast injection was performed. Mild global left ventricular systolic dysfunction. The estimated ejection fraction is 40 %. Mild concentric left ventricular hypertrophy. The left atrium is moderately enlarged. The right atrium is mildly enlarged. Trivial mitral valve insufficiency. Mild tricuspid valve insufficiency. Mild diffuse aortic valve thickening. Trivial pulmonic valve insufficiency. Right ventricular systolic pressure estimated to be 22 mmHg. Unable to assess diastolic dysfunction. Comment: 2D echocardiographic images demonstrate a vague echodensity on the left atrial side of the interatrial septum of uncertain etiology with a differential diagnosis including echocardiographic reverberation/artifact, however, other etiologies such as mass lesion cannot be excluded. Consider further evaluation with additional cardiovascular studies such as HILARY or radiologic studies such as cardiac MRI as clinically indicated.= Ordering Physician: Jeovany Drew Performed By: Cleo Root RDCS Abdomen/Pelvis CT 02/02/21 23:43 IMPRESSION: Bilateral pleural effusions right greater than left. Bilateral lower lobe and right upper lobe subsegmental atelectasis versus pneumonia. Mild right renal atrophy. Left renal parapelvic cysts which would find no further evaluation. Anasarca. Electronically Signed: Cecil Macias MD at 3:23 EDT , Service support , Renal Ultrasound 02/04/21 13:36 IMPRESSION: 1.1 cm x 1.4 cm x 0.9 cm right renal cyst. Mild degree of left hydronephrosis. Electronically Signed: Jacobo Ding MD at 9:08 EDT , Service support , Transesophageal Echocardiogram 02/05/21 08:00 Interpretation Summary Based upon the 2D echocardiographic images obtained there appears to be grossly normal left ventricular size and global left ventricular systolic dysfunction. The estimated ejection fraction is 30 %. The left atrium is moderately enlarged. There is mild sponatenous contrast in the left atrium. No thrombus is detected in the left atrial appendage. The right atrium is moderately enlarged. Mild diffuse mitral valve thickening. Mild-Moderate (1-2+) mitral valve insufficiency. Mild tricuspid valve insufficiency. Mild diffuse aortic valve thickening. Positive color-flow Doppler study for a left to right interatrial shunt compatible with a small PFO. Late and faintly positive agitated saline contrast study for a right to left interatrial shunt potentially compatible with a small PFO. Mild atherosclerosis of the descending aorta. Ordering Physician: Rojas Schilling Performed By: Aide Carmichael RDCS Cardiology Nephrology Operations: None Procedures: 2-D Echocardiogram, Cardioversion, Transesophageal Echo Summary of Care Provided: The patient is a 75 year old M with PMHx of hypertension, who has not seen a doctor for years, who presents emergency department with abdominal heaviness. Associated is palpitations, orthopnea, paroxysmal nocturnal dyspnea, shortness of breath and fatigue. In the ED, he was found to have A. fib in RVR. He had atelectasis on Chest X-ray. CT abd/pelvis showed bilateral pleural effusions, and atelectasis. He was managed on Cardizem drip and transitioned to carvedilol. He was also managed for acute CHF with Lasix. His 2d-ECHO showed EF 40%, possible left atrial mass. Cardiology was consulted. Patient underwent HILARY showed no thrombus or left atrial mass. EF 30%. He also underwent cardioversion and converted to NSR. He remained in NSR and was discharged to SNF. Nephrology was also consulted to establish with him. Renal ultrasound souwed mild hydronephrosis but negative CT scan of abd. He will follow-up with Dr. Byrd in the outpatient. Patient Problems: Active and Suspected Problems (Last Reviewed 02/02/21 @ 04:[address] Jeovany Drew MD) Afib (Acute) Heart failure (Acute) CHF (congestive heart failure) (Acute) Cardiomyopathy (Acute) Left atrial mass (Acute) Renal insufficiency (Acute) Subjective: On the day of discharge, patient was seen and examined. No new complaints. Objective: Physical exam: General: Alert, Oriented x3, Cooperative, No apparent distress, Well developed, on 3L of oxygen HEENT: Atraumatic Oral: Moist Mucosa Neck: Supple Lungs: Clear to auscultation Cardiovascular: HS I+II, regular, no murmurs Abdomen: Bowel Sounds Present, Soft, Non Tender Extremities: No edema Skin: No rashes, No breakdown Neurological: Grossly intact Psych/Mental Status: Appropriate - Physical Exam Vitals/I&O's: Vital Signs Temp Pulse Resp BP Pulse Ox 97.6 F L 94 20 H 146/94 H 100 02/05/21 12:52 02/05/21 12:52 02/05/21 12:52 02/05/21 12:52 02/05/21 12:52 Oxygen Flow Rate (L/min) 3 Oxygen Delivery Method Nasal Cannula Weight: 104.4 kg Body Mass Index (BMI) 33.0 Intake and Output for Last 24 Hours 02/03/21 02/04/21 02/05/21 23:59 23:59 23:59 Intake Total 1373.42 / 1373.42 840 / 840 0 / 0 Output Total 825 / 825 525 / 525 1200 / 1200 Balance 548.42 / 548.42 315 / 315 -1200 / -1200 Microbiology Past 72 Hours 02/04/21 11:40 Mucosa - Nasopharyngeal SARS-CoV-2 Antigen (Rapid) - Final Laboratory Results 02/05/21 08:20: Sodium 139, Potassium 4.5, Chloride 103, Carbon Dioxide 34.0 H, Anion Gap 2 L, BUN 33 H, Creatinine 1.83 H, Estim Creat Clear Calc 35.46, Est GFR (MDRD) Af Amer 47 L, Est GFR (MDRD) Non-Af 38 L, BUN/Creatinine Ratio 18.0, Glucose 101, Calcium 9.2 Current Medications Acetaminophen (Acetaminophen 325 Mg Tablet) 650 mg PO Q6H PRN PRN PRN Reason: Pain Score 1-10 /Temp>100.7 Amiodarone HCl (Amiodarone 200 Mg Tablet) 200 mg PO TID [facility] Stop: 02/08/21 22:01 Amiodarone HCl (Amiodarone 200 Mg Tablet) 200 mg PO BID [facility] Stop: 02/22/21 22:01 Amiodarone HCl (Amiodarone 200 Mg Tablet) 200 mg PO DAILY [facility] Aspirin (Aspirin 81 Mg Tab.Chew) 81 mg PO DAILY@0800 [facility] Last Admin: 02/05/21 08:08 Dose: 81 mg Documented by: Carvedilol (Carvedilol 6.25 Mg Tablet) 6.25 mg PO BID [facility] Enoxaparin Sodium (Enoxaparin 120 Mg/0.8 Ml Syringe) 110 mg SC BID [facility] Last Admin: 02/05/21 08:08 Dose: 110 mg Documented by: Furosemide (Furosemide 40 Mg Tablet) 40 mg PO BID@1000,1800 [facility] Sodium Chloride () 1,000 mls @ 15 mls/hr IV .Q48H [facility] Last Admin: 02/05/21 08:20 Dose: 15 mls/hr Documented by: Sodium Chloride () 500 mls @ 0 mls/hr IV .Q0M [facility] Isosorbide Mononitrate (Isosorbide Mononitrate 30 Mg Tablet) 30 mg PO DAILY [facility] Last Admin: 02/05/21 08:09 Dose: 30 mg Documented by: Lisinopril (Lisinopril 5 Mg Tablet) 5 mg PO BID [facility] Last Admin: 02/05/21 08:08 Dose: 5 mg Documented by: Melatonin (Melatonin 3 Mg Tablet) 3 mg PO QHS PRN PRN PRN Reason: INSOMNIA Ondansetron HCl (Ondansetron 4 Mg/2 Ml Vial) 4 mg IV Q8H PRN PRN PRN Reason: Nausea Potassium Chloride (Potassium Chloride Oral Tablet 20 Meq) [address] [facility] Last Admin: 02/05/21 08:08 Dose: 40 meq Documented by: Senna/Docusate Sodium (Senna/Docusate Sodium 1 Tablet) 2 tablet PO BID PRN PRN PRN Reason: Constipation Sodium Chloride (0.9% Saline Lock 10 Ml Syringe) 10 - 40 ml IV UD PRN PRN Reason: SALINE FLUSH Last Admin: 02/05/21 10:37 Dose: 10 ml Documented by: Discharge Diet: Low fat/ Low Cholesterol, 6 Cup Fluid Restriction, 2000 mg Sodium Diet Discharge Activity: Return to Normal Activity Home Medications: Medications to take at Discharge Amiodarone HCl [Cordarone] 200 mg PO BID 30 Days #60 tablet 02/05/21 Amiodarone HCl [Cordarone] 200 mg PO DAILY 30 Days #0 tablet 02/05/21 Amiodarone HCl [Cordarone] 200 mg PO TID 30 Days #60 tablet 02/05/21 Apixaban [Eliquis] 5 mg PO BID 30 Days #60 tablet 02/05/21 Aspirin [Aspirin, Baby] 81 mg PO DAILY@0800 tab.chew 02/05/21 Carvedilol [Coreg (Beta Sadie)] 6.25 mg PO BID tablet 02/05/21 Furosemide [Lasix] 40 mg PO BID@1000,1800 tablet 02/05/21 Isosorbide Mononitrate [Imdur] 30 mg PO DAILY tablet 02/05/21 Lisinopril [Zestril] 5 mg PO BID tablet 02/05/21 Potassium Chloride Oral Tablet [K-Dur] 40 meq PO DAILYCM tablet 02/05/21 Senna/Docusate Sodium [Senokot-S] 2 tablet PO BID PRN PRN tablet 02/05/21 Following Prescriptions Were Given to Patient: Apixaban [Eliquis] 5 mg PO BID 30 Days #60 tablet Primary Care Physician: NOT,DEFINED [NON-STAFF] - Please Follow Up With: Rojas Schilling MD When: in 2 weeks Please Follow Up With: Lacho Byrd MD When: in 2 weeks Please Follow Up With: Derke Lopez MD When: in 2-3 weeks Disposition: Care Home facility Minutes spent on discharge:: 40 Patient Condition:: Stable Medical Necessity - Tobacco Use Smoking Status: Former smoker Tobacco Use: Non-smoker Meaningful Use Info Meaningful Use Diagnoses (Choose all that apply): CHF - CHF SPENCER/ARB ordered at discharge?: No Reason SPENCER/ARB not ordered?: Worsening renal disease Documented LVEF (%): 30 Inpatient E&M: 99957 Disch Hosp
--- NOTE | 2021-02-05 14:14 | PHA.DC.MR ---
Pharmacy Service has performed discharge medication reconciliation for this patient upon transfer to [facility]. Home Medications Amiodarone HCl [Cordarone] 200 mg PO BID tablet 02/05/21 Amiodarone HCl [Cordarone] 200 mg PO DAILY tablet 02/05/21 Amiodarone HCl [Cordarone] 200 mg PO TID tablet 02/05/21 Apixaban [Eliquis] 2.5 mg PO BID 30 Days #60 tablet 02/05/21 Aspirin [Aspirin, Baby] 81 mg PO DAILY@0800 tab.chew 02/05/21 Carvedilol [Coreg (Beta Sadie)] 6.25 mg PO BID tablet 02/05/21 Isosorbide Mononitrate [Imdur] 30 mg PO DAILY tablet 02/05/21 Lisinopril [Zestril] 5 mg PO BID tablet 02/05/21 Potassium Chloride Oral Tablet [K-Dur] 40 meq PO DAILYCM tablet 02/05/21 Senna/Docusate Sodium [Senokot-S] 2 tablet PO BID PRN PRN tablet 02/05/21 The patient's discharge medication list was reviewed for discrepancies and discrepancies were resolved.
--- NOTE | 2021-02-05 14:18 | CASEMGMT ---
Addendum entered by Melissa Bunch 02/05/21 14:58: Patient was able to come off the O2. SW spoke with patient and let him know he will be going later this evening and his friend can transport him. He has the address for the care home. KARLA faxed orders to [facility]. KARLA did write on the fax face sheet that the med list may change. Convalescent was completed on . Plan: d/c to [facility] under skilled level of care on a convalescent stay. Patient's friend transported him via private vehicle. Melissa Bunch [employer] Original Note: Patient will be discharged today. KARLA notified Rehana at [facility]. Rehana said patient's friend can take him. KARLA asked RN if patient would be able to come off the O2 as his friend was going to transport him and he doesn't have O2. He said he would try. KARLA will fax orders once completed and then leave green sheet with instructions on setting up transport with [facility] if patient requires O2. Plan: D/c to [facility]. Melissa Bunch [employer]
--- NOTE | 2021-02-05 14:41 | PN.RENAL_ITS ---
Patient Problems: Active and Suspected Problems (Last Reviewed 02/02/21 @ 04:[address] Jeovany Drew MD) Afib (Acute) Heart failure (Acute) CHF (congestive heart failure) (Acute) Cardiomyopathy (Acute) Left atrial mass (Acute) Renal insufficiency (Acute) Subjective: no sob/cp - Physical Exam Vitals/I&O's: Vital Signs Temp Pulse Resp BP Pulse Ox 97.6 F L 94 20 H 146/94 H 100 02/05/21 12:52 02/05/21 12:52 02/05/21 12:52 02/05/21 12:52 02/05/21 12:52 Oxygen Flow Rate (L/min) 3 Oxygen Delivery Method Nasal Cannula Weight: 104.4 kg Body Mass Index (BMI) 33.0 Intake and Output for Last 24 Hours 02/03/21 02/04/21 02/05/21 23:59 23:59 23:59 Intake Total 1373.42 / 1373.42 840 / 840 90.5 / 90.5 Output Total 825 / 825 525 / 525 1200 / 1200 Balance 548.42 / 548.42 315 / 315 -1109.5 / -1109.5 General: Alert, Cooperative HEENT: Atraumatic, Normocephalic Neck: Supple Lungs: Clear to auscultation, Normal air movement Cardiovascular: Regular rate, Regular Rhythm, Normal S1, Normal S2 Abdomen: Bowel Sounds Present, Soft, Non Tender Extremities: Edema Microbiology Past 72 Hours 02/04/21 11:40 Mucosa - Nasopharyngeal SARS-CoV-2 Antigen (Rapid) - Final Laboratory Results 02/05/21 08:20: Sodium 139, Potassium 4.5, Chloride 103, Carbon Dioxide 34.0 H, Anion Gap 2 L, BUN 33 H, Creatinine 1.83 H, Estim Creat Clear Calc 35.46, Est GFR (MDRD) Af Amer 47 L, Est GFR (MDRD) Non-Af 38 L, BUN/Creatinine Ratio 18.0, Glucose 101, Calcium 9.2 Current Medications Acetaminophen (Acetaminophen 325 Mg Tablet) 650 mg PO Q6H PRN PRN PRN Reason: Pain Score 1-10 /Temp>100.7 Amiodarone HCl (Amiodarone 200 Mg Tablet) 200 mg PO TID [facility] Stop: 02/08/21 22:01 Amiodarone HCl (Amiodarone 200 Mg Tablet) 200 mg PO BID PENDING SALE TO [facility] Stop: 02/22/21 22:01 Amiodarone HCl (Amiodarone 200 Mg Tablet) 200 mg PO DAILY PENDING SALE TO [facility] Aspirin (Aspirin 81 Mg Tab.Chew) 81 mg PO DAILY@0800 PENDING SALE TO [facility] Last Admin: 02/05/21 08:08 Dose: 81 mg Documented by: Carvedilol (Carvedilol 6.25 Mg Tablet) 6.25 mg PO BID PENDING SALE TO [facility] Enoxaparin Sodium (Enoxaparin 120 Mg/0.8 Ml Syringe) 110 mg SC BID PENDING SALE TO [facility] Last Admin: 02/05/21 08:08 Dose: 110 mg Documented by: Furosemide (Furosemide 40 Mg Tablet) 40 mg PO BID@1000,1800 PENDING SALE TO [facility] Sodium Chloride () 1,000 mls @ 15 mls/hr IV .Q48H PENDING SALE TO [facility] Last Infusion: 02/05/21 14:22 Dose: Infused Documented by: Sodium Chloride () 500 mls @ 0 mls/hr IV .Q0M PENDING SALE TO [facility] Isosorbide Mononitrate (Isosorbide Mononitrate 30 Mg Tablet) 30 mg PO DAILY PENDING SALE TO [facility] Last Admin: 02/05/21 08:09 Dose: 30 mg Documented by: Lisinopril (Lisinopril 5 Mg Tablet) 5 mg PO BID PENDING SALE TO [facility] Last Admin: 02/05/21 08:08 Dose: 5 mg Documented by: Melatonin (Melatonin 3 Mg Tablet) 3 mg PO QHS PRN PRN PRN Reason: INSOMNIA Ondansetron HCl (Ondansetron 4 Mg/2 Ml Vial) 4 mg IV Q8H PRN PRN PRN Reason: Nausea Potassium Chloride (Potassium Chloride Oral Tablet 20 Meq) [facility] Last Admin: 02/05/21 08:08 Dose: 40 meq Documented by: Senna/Docusate Sodium (Senna/Docusate Sodium 1 Tablet) 2 tablet PO BID PRN PRN PRN Reason: Constipation Sodium Chloride (0.9% Saline Lock 10 Ml Syringe) 10 - 40 ml IV UD PRN PRN Reason: SALINE FLUSH Last Admin: 02/05/21 10:37 Dose: 10 ml Documented by: Medical Necessity - Tobacco Use Smoking Status: Former smoker Assessment/Plan All Active Problems (Last Reviewed 02/02/21 @ 04:[address] Jeovany Drew MD) Afib (Acute) Heart failure (Acute) CHF (congestive heart failure) (Acute) Cardiomyopathy (Acute) Left atrial mass (Acute) Renal insufficiency (Acute) PATRICIA versus CKD 3 at baseline CHFrEF Hypertension A. fib Serum creatinine has been stable since admission okay to continue diuretics from renal standpoint. Considering his A. fib and CHF would leave management of his hypertension per cardiology. Avoid overdiuresis and nephrotoxins. L mild hydro can be followed up as outpatient per urology who talked with the hospitalist.Urology f/u as outpatient. Scr 1.8 stable
--- NOTE | 2021-02-05 14:50 | NURSING ---
pt ambulated in hallway on RA with physical therapy. Pts spo2 stayed at 97% while on RA during ambulation
[2021-02-05] MEDS: Amiodarone 200 MG Tablet PO (15:00)
--- NOTE | 2021-02-05 16:16 | NURSING ---
report called to [facility]
== END 2021-02-05 17:37 | disposition skilled nursing facility (03) | DRG 308 ==
LOC: ED 02-02 01:34 → PCU 02-02 04:03
PROVIDERS: Internal Medicine Cardiovascular Disease; Admitting Provider Hospitalist; Emergency Provider Emergency Medicine; Visit Provider Internal Medicine
DX: I48.91 Unspecified atrial fibrillation (principal); I50.21 Acute systolic (congestive) heart failure; N17.9 Acute kidney failure, unspecified; N13.30 Unspecified hydronephrosis; J98.11 Atelectasis; R17 Unspecified jaundice; I11.0 Hypertensive heart disease with heart failure; I42.9 Cardiomyopathy, unspecified; E83.42 Hypomagnesemia; K59.00 Constipation, unspecified; Z79.82 Long term (current) use of aspirin; Z79.899 Other long term (current) drug therapy; Z87.891 Personal history of nicotine dependence
CPT/HCPCS: 36415; 71045; 74177; 76770; 80048; 80053; 81001; 83690; 83735; 83880; 84443; 84484; 85025; 87426; 93005; 93306; 93312; 93320; 93325; 97110; 97162; 97166; 97530; 97535; 97802; 99285; J7030; J7040; Q9957; Q9967; A4216; C8929; J1940

== ENCOUNTER 2022-01-27 10:35 | Outpatient (CLI) | payer MEDICARE, SELFPAY ==
--- NOTE | 2022-01-27 10:39 | ECHOCS_ITS ---
Reason For Study: ATRIAL FIB-FLUTTER Procedure This was a 2D Doppler, Color Flow transthoracic echocardiogram. The study was technically difficult. Contrast injection was performed. Exam performed in department. Left Ventricle Normal LV size. Mild concentric left ventricular hypertrophy. Left ventricular systolic function is normal. The estimated ejection fraction is 60 %. Diastolic function is indeterminate. No regional wall motion abnormalities noted. Right Ventricle Normal RV size. Normal systolic function. Atria The left atrium is mildly enlarged. Normal right atrium. No doppler evidence for ASD. Mitral Valve There is mild mitral annular calcification. Extension of the mitral annular calcification on base of the posterior mitral valve leaflet. Trivial mitral valve insufficiency. Tricuspid Valve Normal tricuspid valve. Trivial tricuspid valve insufficiency. Right ventricular systolic pressure estimated to be 42 mmHg. Aortic Valve Trisinus/trileaflet aortic valve. Normal aortic valve. Pulmonic Valve The pulmonic valve is not well visualized. Mild (1+) pulmonic valve insufficiency. Great Vessels Normal sized aortic root. Pericardium/Pleural No pericardial effusion. Medication 22 gauge I.V. with prn adaptor inserted into right arm. Diluted definity 3ml given slow IV push to enhance endocardial definition. MMode/2D Measurements & Calculations LVIDd: 4.4 cm IVSd: 1.2 cm Ao root diam: 3.5 cm LVIDs: 3.0 cm LVPWd: 1.3 cm RVDd: 3.6 cm FS: 31.4 % LAV(MOD-bp): 63.5 ml LVAd ap4: 33.6 cm2 SV(MOD-sp4): 70.7 ml LAV(MOD-bp) Indexed: 29.8 ml/m2 LVLd ap4: 8.2 cm LAV(MOD-sp2): 62.9 ml EDV(MOD-sp4): 112.0 ml LAV(MOD-sp4): 58.6 ml EDV(sp4-el): 117.2 ml LVAs ap4: 18.5 cm2 LVLs ap4: 7.0 cm ESV(MOD-sp4): 41.3 ml ESV(sp4-el): 41.4 ml EF(MOD-sp4): 63.1 % EF(sp4-el): 64.7 % SV(sp4-el): 75.8 ml LA A4 area: 20.6 cm2 LA dimension(2D): 3.6 cm RA A4 area: 15.3 cm2 Time Measurements MV dec time: 0.27 sec Doppler Measurements & Calculations MV E max cleve: 68.8 cm/sec Lat Peak E' Cleve: 7.6 cm/sec Med Peak E' Cleve: 7.8 cm/sec MV A max cleve: 65.4 cm/sec E/E' lat: 9.1 E/E' med: 8.9 MV E/A: 1.1 Ao V2 max: 96.3 cm/sec LV V1 max: 75.4 cm/sec PA V2 max: 102.2 cm/sec Ao max P.7 mmHg LV V1 max P.3 mmHg TR max cleve: 311.6 cm/sec TR max P.8 mmHg ECHO/Echo Complete W/ Contrast Interpretation Summary The study was technically difficult. Contrast injection was performed. Left ventricular systolic function is normal. The estimated ejection fraction is 60 %. Mild concentric left ventricular hypertrophy. The left atrium is mildly enlarged. There is mild mitral annular calcification. Extension of the mitral annular calcification on base of the posterior mitral v alve leaflet. Trivial mitral valve insufficiency. Trivial tricuspid valve insufficiency. Mild (1+) pulmonic valve insufficiency. Right ventricular systolic pressure estimated to be 42 mmHg. Diastolic function is indeterminate. Ordering Physician: Rojas Schilling Referring Physician: Rojas Schilling Performed By: Aide Carmichael RDCS
== END 2022-01-27 23:59 | disposition home or self-care (01) ==
LOC: CVS 10:38
PROVIDERS: Referring Provider Internal Medicine Cardiovascular Disease; Visit Provider Internal Medicine Cardiovascular Disease
DX: I50.21 Acute systolic (congestive) heart failure (principal)
CPT/HCPCS: 93306; Q9957; A4216; C8929

== ENCOUNTER → 2022-08-16 | Outpatient (CLI) | payer MEDICARE, SELFPAY ==
[2022-08-16 15:12] LABS: Absolute Lymphocyte Count 1.39 X10^3/uL (0.83-4.51); Basophil# 0.04 X10^3/uL; Basophil% 0.6 % (0-1); Eosinophil# 0.31 X10^3/uL; Eosinophils% 4.8 % (0-5); Hematocrit 43.1 % (40-54); Lymphocyte # 1.39 X10^3/ul (0.83-4.51); Lymphocyte % 21.4 % (19-41); Mean Corp Hgb Conc 32.5 g/dL (32-36); Mean Corpuscular Hgb 30.5 pg (27.0-32.0); Mean Corpuscular Volume 93.9 fL (80-94); Mean Platelet Vol. 9.9 fl (6.2-12.0); Monocyte# 0.73 X10^3/uL; Monocyte% 11.2 % (0-10); NRBC Flagged by Analyzer 0 % (0-5); Neutrophil % 61.4 % (47-70); Platelet Count 182 K/mm3 (150-450); RBC Distribution Width CV 13.4 % (11.6-14.6); RBC Distribution Width SD 46.1 fl (35.1-43.9); Red Blood Count 4.59 M/mm3 (4.6-6.2); White Blood Count 6.5 K/mm3 (4.4-11.0)
[2022-08-16 15:48] LABS: ALB/GLOB Ratio 0.9 RATIO (0.9-2.4); AST(SGOT) 24 U/L (15-37); Alanine Aminotransfer ALT/SGPT 38 U/L (16-61); Albumin, Serum 3.4 g/dL (3.2-5.0); Alkaline Phosphatase 83 U/L (45-117); Anion Gap 4 (5-15); BUN 26 mg/dL (7-18); BUN/Creat Ratio 19.3 RATIO (10-20); Calcium,Total 9.3 mg/dL (8.5-10.1); Chloride 108 mmol/L (98-107); Creatinine, Serum 1.35 mg/dL (0.70-1.30); EST Glomerular Filtration Rate 54 mL/min (>60); Est Glom Filt Rate - Afr Amer 66 mL/min (>60); Globulin 3.8 g/dL (2.2-4.2); Glucose 102 mg/dL (74-106); Potassium 4.4 mmol/L (3.5-5.1); Protein, Total 7.2 g/dL (6.4-8.2); Sodium Level 141 mmol/L (136-145)
== END | disposition home or self-care (01) ==
LOC: LAB 14:11
PROVIDERS: Referring Provider Nurse Practitioner Family; Visit Provider Nurse Practitioner Family
DX: I50.21 Acute systolic (congestive) heart failure (principal); I42.9 Cardiomyopathy, unspecified; I10 Essential (primary) hypertension
CPT/HCPCS: 36415; 80053; 85025